=== PATIENT | male | born 1980 | race Caucasian/White ===

== ENCOUNTER 2021-07-31 12:36 | Emergency (ER) | payer OTHER, SELFPAY ==
--- NOTE | 2021-07-31 | ECG_ITS ---
Test Reason : CHEST PAIN Blood Pressure : / mmHG Vent. Rate : 072 BPM Atrial Rate : 072 BPM P-R Int : 154 ms QRS Dur : 094 ms QT Int : 390 ms P-R-T Axes : 040 -21 041 degrees QTc Int : 427 ms Normal sinus rhythm Normal ECG When compared with ECG of 01-JUN-2019 08:13, Vent. rate has increased BY 26 BPM Referred By: Generic ED Physician Electronically Signed By:CHERISE MAIER
[2021-07-31 12:53] VITALS: BP 132/70; PULSE 71; RESP 16; TEMP 36.6; O2SAT 98; BMI 33.9
== END 2021-07-31 15:07 | disposition left against medical advice (07) ==
PROVIDERS: Emergency Provider Emergency Medicine
DX: R07.9 Chest pain, unspecified (principal); R00.2 Palpitations
CPT/HCPCS: 93005; 99283

== ENCOUNTER 2022-04-10 10:33 | Emergency (ER) | payer OTHER, SELFPAY ==
[2022-04-10 10:42] VITALS: BP 128/74; PULSE 52; RESP 16; TEMP 36.6; O2SAT 96; BMI 31.1
[2022-04-10 11:51] LABS: COVID-19 Test Negative (Negative); IDNOW Serial# 16C4AD1C; Influenza A Negative (Negative); Influenza B2 Negative (Negative)
--- NOTE | 2022-04-10 12:13 | ED_ITS ---
HPI - URI/Sore Throat General Chief Complaint: General Medical Stated Complaint: sinus infection Time Seen by Provider: 04/10/22 12:08 Source: patient Mode of arrival: ambulatory Limitations: no limitations History of Present Illness MD elicited complaint: rhinorrhea, nasal congestion and sinus pain Onset (ago): week(s) (2) Consistency: constant and progressively worsening Severity: moderate Description of mucous: watery, yellow and green Able to tolerate fluids by mouth: Yes Exacerbating factors: leaning forward Relieving factors: nothing Context: other ( recently traveled from [place] here) Associated symptoms: denies other symptoms Treatments prior to arrival: other ( he is taking [id number] nasal sprays and medication no symptomatic relief) Related Data Previous Rx's Medication Instructions Recorded doxycycline hyclate 100 mg tablet 100 mg PO BID 10 Days #20 tab 04/10/22 loratadine-pseudoephedrine ER 10 1 tab PO DAILY #30 tab 04/10/22 mg-240 mg tablet,extended [id number] (Claritin-D 24 Hour) prednisone 20 mg tablet 20 mg PO DAILY 5 Days #5 tab 04/10/22 Allergies Allergy/AdvReac Type Severity Reaction Status Date / Time cefazolin [From ANCEF] Allergy Unknown UNKNOWN Unverified 07/26/20 16:34 cephalexin [From KEFLEX] Allergy Unknown UNKNOWN Unverified 07/26/20 16:34 Review of Systems Review of Systems: Constitutional : No Weight loss, No Fever, No Chills, No Night Sweats, No Fatigue, No Malaise ENT/Mouth : + nasal congestion/ rhinorrhea/sinus pain, No Hearing loss, No Ear Pain, No Hoarseness, No sore throat, No Swallowing Difficulty Eyes: No Eye Pain, No Swelling, No Redness, No Foreign Body, No Discharge, No Vision Changes Cardiovascular : No Chest Pain, No SOB, No Dyspnea on Exertion, No Orthopnea, No Edema, No Palpitations Respiratory : No Cough, No Sputum, No Wheezing, No Smoke Exposure, No Dyspnea Gastrointestinal : No Nausea, No Vomiting, No Diarrhea, No Constipation, No abdominal Pain, No Hematochezia, No Melena Genitourinary : no irregular bleeding, No Dysuria, No Urinary Frequency, No Hematuria, No Urinary Incontinence, No Urgency, No Flank Pain, No Urinary Flow Changes, No Hesitancy Musculoskeletal : No joint pain, No Myalgias, No Joint Swelling Skin : No Skin Lesions, No rash Neuro : No Weakness, No Numbness, No Paresthesias, No Loss of Consciousness, No Dizziness, No Headache Psych : No Anxiety/Panic, No Depression, No SI/HI/AH/VH, No Social Issues, Heme/Lymph: No Bruising, No Bleeding,No Lymphadenopathy Endocrine : No Polyuria, No Polydipsia, No Temperature Intolerance Yes all other systems are reviewed and are negative [facility] Past Medical History Attestation statement: The following information was validated with the patient. Social History Social History Advance Directives: No Advance Directives Information Provided: No Physical Exam Vital Signs: Vital Signs: Last Vital Signs Temp 97.8 F 04/10/22 10:42 Pulse 52 04/10/22 10:42 Resp 16 04/10/22 10:42 BP 128/74 04/10/22 10:42 Pulse Ox 96 04/10/22 10:42 BMI result Body Mass Index 31.1 vital signs have been reviewed as normal and appeared to be correct. Blood pressure normal. Heart rate normal. Respiration rate normal. Temperature normal. Oxygen saturation normal. Appearance: Alert. Oriented X3. No acute distress. Head: Normal external exam. Normocephalic. Atraumatic. Eyes: PERRLA. EOMI. Conjunctiva and sclera normal. Eyelids normal. ENT: EAC normal. TM's Normal. Pharynx normal. Uvula midline. Moist mucous membranes. No lesions/ulcerations or masses noted on the tongue. Normal voice. No trismus noted. No drooling noted. No muffled voice noted. patient with sinus pressure pain. Neck: Normal inspection. Neck supple. FROM. No adenopathy. Thyroid Normal. No tracheal deviation noted. No crepitus is noted. No meningeal signs. No neck mass noted. No signs of trauma noted. CVS: Normal heart rate and rhythm. Heart sound normal. Pulses normal throughout. No murmurs/rales/gallops. Respiratory: No respiratory distress. Painless inspiration. Breath sounds normal. No wheezes/rales/rhonchi noted. No accessory muscle usage noted or decreased air movement noted. Back: Full range of motion noted. Skin: Skin warm and dry. Normal skin color. Normal skin turgor. No rashes/lesions/lacerations noted. Extremities:Extremities exhibit normal range of motion and nontender. Neuro: Oriented X 3. No motor deficit. No sensory deficit. Reflexes normal. Normal steady gait. No focal neuro deficits noted. CN's II-XII intact bilaterally? Vascular: + radial pulses/+ 2 distal pedal pulses/+2 dorsalis pedis b/l. Normal cap refill. No cyanosis noted to upper extremity nails and lower extremity toes nails. Course Course Course Narrative: Patient most likely sinusitis/Allergic rhinitis. Patient negative for COVID and flu. No additional labs are indicated. Will DC home with antibiotics and symptomatic treatment instructions return if any new or worsening symptoms follow up with primary care provider. Patient understands agrees with this plan. MDM - URI/Sore Throat Medical Records Attestation: I reviewed the patient's medical records. Lab Data Attestation: I reviewed the patient's lab results. Labs: Lab Results 04/10/22 04/10/22 Range/Units 11:26 11:26 COVID-19 (ARI) Negative (Negative) COVID-19 Clin Com See Note Influenza Type A (GEN) Negative (Negative) Influenza Type B (GEN) Negative (Negative) Influenza A & B Note See Note Discharge Plan Discharge Clinical Impression: Sinusitis Patient Disposition: Home, Self-Care Instructions: Sinusitis (ED) Prescriptions: New doxycycline hyclate 100 mg tablet 100 mg PO BID 10 Days Qty: 20 0RF prednisone 20 mg tablet 20 mg PO DAILY 5 Days Qty: 5 0RF loratadine-pseudoephedrine [Claritin-D 24 Hour] 10-240 mg tablet extended release 24 hr 1 tab PO DAILY Qty: 30 0RF Referrals: Physician,None [Primary Care Provider] - 2 days ( your PCP) Stand Alone Forms: Work/School Release
== END 2022-04-10 12:39 | disposition home or self-care (01) ==
PROVIDERS: Emergency Provider Emergency Medicine
DX: J32.9 Chronic sinusitis, unspecified (principal); Z20.822 Contact with and (suspected) exposure to COVID-19
CPT/HCPCS: 87502; 87635; 99283

== ENCOUNTER 2022-12-30 13:13 | Emergency (ER) | payer OTHER, SELFPAY ==
[2022-12-30 13:44] VITALS: BP 137/85; PULSE 62; RESP 18; TEMP 36.8; O2SAT 98; BMI 36.6
--- NOTE | 2022-12-30 13:45 | ED.EYEPROB ---
HPI - Eye Problem General Chief complaint: Eye Problems <TAIWO Conner Last Filed: 12/30/22 13:48> Stated complaint: Infected pimple/Blurry vision R eye <TAIWO Conner Last Filed: 12/30/22 13:48> Time Seen by Provider: 12/30/22 14:18 <TAIWO Conner Last Filed: 12/30/22 13:48> History of Present Illness HPI Narrative: Patient complains of pain and swelling in the right side of the nose and redness and pain now around the right orbit It started with a small pimple on the inside up her right nostril which he popped with a Q-tip but now there is some swelling there and now the redness extends around his right eye, he has no pain with movement of the eye he has no pain in the eye itself no loss of vision no photophobia no discharge from eye no headache no confusion <TAIWO Davis - Last Filed: 01/10/23 21:26> Related Data Home medications: Previous Rx's Medication Instructions Recorded doxycycline hyclate 100 mg tablet 100 mg PO BID 10 days #20 tabs 04/10/22 loratadine-pseudoephedrine ER 10 1 tab PO DAILY #30 tabs 04/10/22 mg-240 mg tablet,extended [id number] (Claritin-D 24 Hour) amoxicillin 875 mg-potassium 1 tab PO BID 7 days #14 tabs 12/30/22 clavulanate 125 mg tablet doxycycline hyclate 100 mg capsule 100 mg PO BID 7 days #14 caps 12/30/22 ibuprofen 600 mg tablet 600 mg PO Q6H PRN pain #20 tabs 12/30/22 oxycodone 5 mg tablet 5 mg PO Q6H PRN pain #10 tabs 12/30/22 <TAIWO Conner Last Filed: 12/30/22 13:48> Allergies/adverse reactions: Allergies Allergy/AdvReac Type Severity Reaction Status Date / Time cefazolin [From ANCEF] Allergy Unknown UNKNOWN Unverified 04/16/22 14:50 cephalexin [From KEFLEX] Allergy Unknown UNKNOWN Unverified 04/16/22 14:50 <TAIWO Conner Last Filed: 12/30/22 13:48> [facility] Past Medical History Source: nursing notes reviewed <TAIWO Davis - Last Filed: 01/10/23 21:26> Social History Social History: Social History Advance Directives: No Advance Directives Information Provided: Yes <TAIWO Conner - Last Filed: 12/30/22 13:48> Physical Exam Vital Signs: Vital Signs: Last Vital Signs Temp 98.2 F 12/30/22 13:44 Pulse 62 12/30/22 13:44 Resp 18 12/30/22 13:44 BP 137/85 12/30/22 13:44 Pulse Ox 98 12/30/22 13:44 O2 Del Method 12/30/22 13:44 BMI result Body Mass Index 36.6 <TAIWO Conner - Last Filed: 12/30/22 13:48> Vital Signs: Last Vital Signs Temp 98.2 F 12/30/22 13:44 Pulse 62 12/30/22 13:44 Resp 18 12/30/22 13:44 BP 137/85 12/30/22 13:44 Pulse Ox 98 12/30/22 13:44 O2 Del Method 12/30/22 13:44 BMI result Body Mass Index 36.6 <TAIWO Davis - Last Filed: 01/10/23 21:26> General appearance no distress Facial exam the right nostril there is some mild swelling on the lateral aspect but no fluctuance no pustule There is some redness on the right infraorbital area as well as some redness of the right upper lid Pupils equal round reactive to light and extraocular motions are full and intact without any discomfort The pharynx is clear Neck is supple The chest is clear to auscultation bilateral Heart no murmur Extremities full range of motion x4 <TAIWO Davis - Last Filed: 01/10/23 21:26> Course Course Course Narrative: RME-- 42 yo M c/o infected pimpled to right nare which he picked at 3 days ago with some drainage, now with right facial swelling and right eye blurry vision times today. Denies pain with EOMs. Internal right nare pimple noted, difficult to assess in triage with mild external nare swelling and right periorbital swelling/erythema. No appreciable fluctuance/induration Labs ordered <TAIWO Conner - Last Filed: 12/30/22 13:48> RME-- 42 yo M c/o infected pimpled to right nare which he picked at 3 days ago with some drainage, now with right facial swelling and right eye blurry vision times today. Denies pain with EOMs. Internal right nare pimple noted, difficult to assess in triage with mild external nare swelling and right periorbital swelling/erythema. No appreciable fluctuance/induration Labs ordered Patient with a pimple which popped on the inside of his nose, now with some induration but no obvious fluctuant area in the nose and now there is erythema and tenderness in the right lower orbit and some tenderness and mild redness in the lateral and upper orbit as well, there is full painless extraocular motions which are intact Patient is treated for likely periorbital cellulitis with Augmentin and doxycycline, no fever and well-appearing patient is discharged <TAIWO Davis - Last Filed: 01/10/23 21:26> Medications Administered Discontinued Medications Generic Name Dose Route Start Last Admin Trade Name Freq PRN Reason Stop Dose Admin Amoxicillin/Clavulanate Potassium 875 mg 12/30/22 15:18 12/30/22 15:28 Amoxicillin/Potassium Clav 875 Mg Tablet PO 12/30/22 15:19 875 mg ONCE ONE Administration Doxycycline Monohydrate 100 mg 12/30/22 15:18 12/30/22 15:28 Doxycycline Monohydrate 100 Mg Capsule PO 12/30/22 15:19 100 mg ONCE ONE Administration <TAIWO Conner - Last Filed: 12/30/22 13:48> Medications Administered Discontinued Medications Generic Name Dose Route Start Last Admin Trade Name Freq PRN Reason Stop Dose Admin Amoxicillin/Clavulanate Potassium 875 mg 12/30/22 15:18 12/30/22 15:28 Amoxicillin/Potassium Clav 875 Mg Tablet PO 12/30/22 15:19 875 mg ONCE ONE Administration Doxycycline Monohydrate 100 mg 12/30/22 15:18 12/30/22 15:28 Doxycycline Monohydrate 100 Mg Capsule PO 12/30/22 15:19 100 mg ONCE ONE Administration <TAIWO Davis - Last Filed: 01/10/23 21:26> Medical Decision Making Lab Data Result Diagrams: 12/30/22 14:30 12/30/22 14:30 <TAIWO Conner - Last Filed: 12/30/22 13:48> Labs: Lab Results 12/30/22 12/30/22 12/30/22 Range/Units 14:30 14:30 14:30 WBC 8.1 (4.8-10.8) X10*3/uL RBC 4.61 (4.60-5.80) X10*6/uL Hgb 13.8 L (14.0-18.0) g/dl Hct 40.9 L (42.0-52.0) % MCV 88.7 (80.0-98.0) fL MCH 29.9 (27.0-33.0) pg MCHC 33.7 (31.0-36.0) g/dl RDW 13.2 (11.0-16.0) % Plt Count 239 (160-400) X10*3/uL MPV 9.6 (9.4-12.4) fL Immature Gran % (Auto) 0.2 (0.0-0.4) % Neut % (Auto) 66.8 (45-73) % Lymph % (Auto) 17.8 L (20-40) % [place] % (Auto) 6.8 (2-11) % Eos % (Auto) 7.5 H (0-4) % Baso % (Auto) 0.9 (0-2) % Lymph # (Auto) 1.4 (1.2-4.9) X10*3/uL [place] # (Auto) 0.6 (0.1-1.2) X10*3/uL Eos # (Auto) 0.6 H (0.0-0.4) X10*3/uL Baso # (Auto) 0.1 (0.0-0.2) X10*3/uL Abs Immat Gran (auto) 0.02 (0.00-0.03) X10*3/uL Absolute Neuts (auto) 5.4 (2.0-8.3) x10*3/uL Absolute Nucleated RBC 0.000 (0.0-0.012) X10*3/uL Nucleated RBC % (auto) 0.0 (0.0-0.2) /100WBC ESR 22 H (0-15) MM/HR Sodium 139 (135-145) mmol/L Potassium 4.4 (3.3-5.1) mmol/L Chloride 103 (96-108) mmol/L Carbon Dioxide 32 H (22-29) mmol/L Anion Gap 8 L (12-20) BUN 14 (9-16) mg/dL Creatinine 0.92 (0.5-1.4) mg/dL Estim Creat Clear Calc 142.8 Estimated GFR > 60 Random Glucose 79 (60-115) mg/dL Calcium 9.0 (8.4-10.2) mg/dL C-Reactive Protein 2.43 H (< or = 0.50) mg/dL <TAIWO Conner - Last Filed: 12/30/22 13:48> Lab Results 12/30/22 12/30/22 12/30/22 Range/Units 14:30 14:30 14:30 WBC 8.1 (4.8-10.8) X10*3/uL RBC 4.61 (4.60-5.80) X10*6/uL Hgb 13.8 L (14.0-18.0) g/dl Hct 40.9 L (42.0-52.0) % MCV 88.7 (80.0-98.0) fL MCH 29.9 (27.0-33.0) pg MCHC 33.7 (31.0-36.0) g/dl RDW 13.2 (11.0-16.0) % Plt Count 239 (160-400) X10*3/uL MPV 9.6 (9.4-12.4) fL Immature Gran % (Auto) 0.2 (0.0-0.4) % Neut % (Auto) 66.8 (45-73) % Lymph % (Auto) 17.8 L (20-40) % [place] % (Auto) 6.8 (2-11) % Eos % (Auto) 7.5 H (0-4) % Baso % (Auto) 0.9 (0-2) % Lymph # (Auto) 1.4 (1.2-4.9) X10*3/uL [place] # (Auto) 0.6 (0.1-1.2) X10*3/uL Eos # (Auto) 0.6 H (0.0-0.4) X10*3/uL Baso # (Auto) 0.1 (0.0-0.2) X10*3/uL Abs Immat Gran (auto) 0.02 (0.00-0.03) X10*3/uL Absolute Neuts (auto) 5.4 (2.0-8.3) x10*3/uL Absolute Nucleated RBC 0.000 (0.0-0.012) X10*3/uL Nucleated RBC % (auto) 0.0 (0.0-0.2) /100WBC ESR 22 H (0-15) MM/HR Sodium 139 (135-145) mmol/L Potassium 4.4 (3.3-5.1) mmol/L Chloride 103 (96-108) mmol/L Carbon Dioxide 32 H (22-29) mmol/L Anion Gap 8 L (12-20) BUN 14 (9-16) mg/dL Creatinine 0.92 (0.5-1.4) mg/dL Estim Creat Clear Calc 142.8 Estimated GFR > 60 Random Glucose 79 (60-115) mg/dL Calcium 9.0 (8.4-10.2) mg/dL C-Reactive Protein 2.43 H (< or = 0.50) mg/dL <TAIWO Davis - Last Filed: 01/10/23 21:26> Discharge Plan Discharge Clinical Impression: Periorbital cellulitis <TAIWO Conner - Last Filed: 12/30/22 13:48> Patient Disposition: Home, Self-Care <TAIWO Conner - Last Filed: 12/30/22 13:48> Additional Instructions: The small swelling inside the nose did not seem to have any pus or fluctuance, there was no white head on it so at this point I would not drain or cut anything in the nose The redness spreading around the right orbit is likely a spread of skin infection so we are treated with 2 antibiotics Augmentin and doxycycline Return to the ER in 3 days for recheck if not improved Return any time for spreading redness eye pain vision loss worse pain and swelling any concern of worsening infection or any worse condition or any concerns <TAIWO Conner - Last Filed: 12/30/22 13:48> Prescriptions: New doxycycline hyclate 100 mg capsule 100 mg PO BID 7 Days Qty: 14 0RF amoxicillin-pot clavulanate 875-125 mg tablet 1 tab PO BID 7 Days Qty: 14 0RF ibuprofen 600 mg tablet 600 mg PO Q6H PRN (Reason: pain) Qty: 20 0RF oxycodone 5 mg tablet 5 mg PO Q6H PRN (Reason: pain) Qty: 10 0RF Rx Instructions: Partial Fill upon patient request. No Action doxycycline hyclate 100 mg tablet 100 mg PO BID 10 Days Qty: 20 0RF loratadine-pseudoephedrine [Claritin-D 24 Hour] 10-240 mg tablet extended release 24 hr 1 tab PO DAILY Qty: 30 0RF <TAIWO Conner - Last Filed: 12/30/22 13:48> Stand Alone Forms: Work/School Release <TAIWO Conner - Last Filed: 12/30/22 13:48> Interventions: ED Discharge Assessment Last Done: 12/30/22 16:28 <TAIWO Conner - Last Filed: 12/30/22 13:48> Discharge Date/Time: 12/30/22 16:29 <TAIWO Conner - Last Filed: 12/30/22 13:48>
[2022-12-30 14:35] LABS: MANUAL DIFF FLAG NO
[2022-12-30 14:36] LABS: Basophils Absolute Auto 0.1 X10*3/uL (0.0-0.2); Basophils Percent Auto 0.9 % (0-2); Eosinophils Absolute Auto 0.6 X10*3/uL (0.0-0.4); Eosinophils Percent Auto 7.5 % (0-4); Hematocrit 40.9 % (42.0-52.0); Hemoglobin 13.8 g/dl (14.0-18.0); Imm Gran Abs Auto 0.02 X10*3/uL (0.00-0.03); Imm Gran Pct Auto 0.2 % (0.0-0.4); Lymphocytes Absolute Auto 1.4 X10*3/uL (1.2-4.9); Lymphocytes Percent Auto 17.8 % (20-40); Mean Corpuscular HGB Conc 33.7 g/dl (31.0-36.0); Mean Corpuscular Hemoglobin 29.9 pg (27.0-33.0); Mean Corpuscular Volume 88.7 fL (80.0-98.0); Mean Platelet Volume 9.6 fL (9.4-12.4); Monocytes Absolute Auto 0.6 X10*3/uL (0.1-1.2); Monocytes Percent Auto 6.8 % (2-11); Neutrophils Absolute Auto 5.4 x10*3/uL (2.0-8.3); Neutrophils Percent Auto 66.8 % (45-73); Platelet Count 239 X10*3/uL (160-400); Red Blood Count 4.61 X10*6/uL (4.60-5.80); Red Cell Distribution Width 13.2 % (11.0-16.0); White Blood Count 8.1 X10*3/uL (4.8-10.8)
[2022-12-30 14:54] LABS: Anion Gap 8 (12-20); Blood Urea Nitrogen 14 mg/dL (9-16); C Reactive Protein 2.43 mg/dL (< or = 0.50); Carbon Dioxide 32 mmol/L (22-29); Chloride 103 mmol/L (96-108); Creatinine Clr Calc Pharmacy 142.8; Estimated Glomerular Filt Rate > 60; Glucose Random 79 mg/dL (60-115); Potassium 4.4 mmol/L (3.3-5.1); Sodium 139 mmol/L (135-145)
[2022-12-30 15:17] LABS: Erythrocyte Sedimentation Rate 22 MM/HR (0-15)
[2022-12-30] MEDS: Amoxicillin/Potassium Clav 875 MG TABLET PO (15:28)
[2022-12-30] MEDS: Doxycycline Monohydrate 100 MG CAPSULE PO (15:28)
== END 2022-12-30 16:29 | disposition home or self-care (01) ==
PROVIDERS: Physician Assistant; Emergency Provider Emergency Medicine
DX: L03.213 Periorbital cellulitis (principal)
CPT/HCPCS: 36415; 80048; 85025; 85652; 86140; 99282; 99283

== ENCOUNTER 2023-01-01 07:32 | Emergency (ER) | payer OTHER, SELFPAY ==
--- NOTE | ~2023-01-01 | CT_ITS ---
EXAMINATION: CT MAXILLOFACIAL WITH CONTRAST CLINICAL INFORMATION: Facial abscess. Pain with eye movement. COMPARISON: CT head from 06/01/2019. TECHNIQUE: Multidetector helical imaging was performed in the axial plane without and following the administration of 85 mL of Omnipaque 350 intravenous contrast. Generation of coronal and sagittal reformatted images. This CT examination was performed using dose optimization techniques as appropriate, variously including the following: *Automated exposure control *Adjustment of mA and/or kV according to patient size (this includes techniques or standardized protocols for targeted exams where dose is matched to indication/reason for exam; i.e. extremities or head) *Use of iterative reconstruction technique DLP: 286 mGy-cm FINDINGS: FRONTAL SINUSES AND DRAINAGE PATHWAYS: Mild mucosal thickening of the frontal sinuses. The frontoethmoidal recesses are patent. MAXILLARY SINUSES AND DRAINAGE PATHWAYS: Moderate mucosal thickening of the right greater than left maxillary sinuses. Small volume layering fluid within the maxillary sinuses. The right greater than left maxillary ostia and infundibula are partially opacified. ETHMOID SINUSES: Moderate mucosal thickening of the ethmoid air cells. The ethmoid roofs appear symmetric and intact. SPHENOID SINUS AND DRAINAGE PATHWAYS: Mild mucosal thickening of the sphenoid sinus. The sphenoethmoidal recesses are patent. The carotid canals are normally covered by bone. NASAL PASSAGE: Moderate mucosal thickening of the nasal passages. The osseous nasal septum remains midline. ORBITS: Normal appearance of the osseous orbits. The lamina papyracea are intact. No significant retrobulbar edema. Normal appearance of the globes. Normal symmetric appearance of the extraocular musculature. No abnormalities of the intraconal or extraconal adipose tissue. Normal appearance of the optic nerve sheaths. Normal appearance of the lacrimal glands. No orbital fluid collections. No abnormalities of the orbital apices. TEMPOROMANDIBULAR JOINTS: The temporomandibular joints remain well aligned. Normal appearance of the temporomandibular joints. ADDITIONAL RELEVANT FINDINGS: Mild subcutaneous edema within the right periorbital and premaxillary soft tissues without discrete collection. No evidence of maxillofacial bone fractures. The zygomatic arches remain intact. No nasal bone fracture. No evidence of mandibular or maxillary fracture. Odontogenic enamel erosion of the maxillary right 2nd molar. The visualized mastoid air cells and middle ear cavities remain well aerated. Limited evaluation of the intracranial structures without significant abnormalities. The retromaxillary, pterygopalatine fossa, temporal fossa, and parapharyngeal adipose tissue is maintained. No demonstrated soft tissue abnormalities within the intrinsic tissues of the tongue. CT/CT facial bones w IV con IMPRESSION: 1. Mild subcutaneous edema within the right periorbital and premaxillary soft tissues. No discrete collection. No retrobulbar fluid collections. 2. Moderate pansinonasal mucosal disease, most notably involving the right greater than left maxillary sinuses. Small volume layering fluid within the maxillary sinuses suggestive of acute on chronic sinusitis.
[2023-01-01 07:52] VITALS: BP 137/77; PULSE 82; RESP 16; TEMP 36.3; O2SAT 96; BMI 38.0
--- NOTE | 2023-01-01 08:49 | ED_ITS ---
HPI - General Adult General Chief complaint: General Medical Stated complaint: nose infection Time Seen by Provider: 01/01/23 08:45 Source: patient Mode of arrival: ambulatory Limitations: no limitations History of Present Illness HPI narrative: 42 [id number] with no known medical history presents with c/o increasing pain/redness to right periorbital region and right nare increasing since yesterday. Was seen here two days prior and discharged home with periorbital cellulitis on doxycycline and augmentin. Pt reports generalized right eye pain/pressure with EOM, with greater increase in pain when looking down, and blurred vision in right eye. He also endorses purulent discharge, swelling, and inability to breath through the right nare, that has increased since yesterday as well as right sinus pain. He denies fever, chills, fatigue, and reports proper antibiotic use. Onset (ago): day(s) Location: face (right nare, right sinus), eyes (right) and right Radiation: non-radiation Quality: other (pressure) Pain Consistency: constant Relieving factors: none Exacerbating factors: none Associated symptoms: denies other symptoms Treatments prior to arrival: other (antibiotics) Related Data Previous Rx's Medication Instructions Recorded doxycycline hyclate 100 mg tablet 100 mg PO BID 10 days #20 tabs 04/10/22 loratadine-pseudoephedrine ER 10 1 tab PO DAILY #30 tabs 04/10/22 mg-240 mg tablet,extended [id number] (Claritin-D 24 Hour) amoxicillin 875 mg-potassium 1 tab PO BID 7 days #14 tabs 12/30/22 clavulanate 125 mg tablet doxycycline hyclate 100 mg capsule 100 mg PO BID 7 days #14 caps 12/30/22 ibuprofen 600 mg tablet 600 mg PO Q6H PRN pain #20 tabs 12/30/22 oxycodone 5 mg tablet 5 mg PO Q6H PRN pain #10 tabs 12/30/22 Allergies Allergy/AdvReac Type Severity Reaction Status Date / Time cefazolin [From ANCEF] Allergy Unknown UNKNOWN Unverified 04/16/22 14:50 cephalexin [From KEFLEX] Allergy Unknown UNKNOWN Unverified 04/16/22 14:50 Review of Systems Constitutional: Constitutional: Reports no additional constitutional complaints, Denies chills, Denies fever(s) and Denies night sweats Eyes: Eyes: Reports no additional eye complaints, Reports blurry vision (right eye), Denies exophthalmos, Denies change in vision, Denies diplopia, Denies eye discharge, Denies loss of vision and Denies eye pain Comments: redness under the right eye ENT: Reports Normal hearing present, Denies dental pain, Denies dizziness, Denies ear discharge, Reports facial pain, Denies mouth lesions, Denies mouth pain, Reports nasal congestion (right nare only), Reports nasal discharge (right nare), Reports nose pain, Reports sinus pain and Reports sinus pressure Cardiovascular: Cardiovascular: Reports no additional cardiovascular complaints, Denies chest pain, Denies lightheadedness, Denies Loss of Consciousness and Denies dyspnea Respiratory: Respiratory: Reports no additional respiratory complaints and Denies dyspnea Gastrointestinal: Gastrointestinal: Reports no additional gastrointestinal complaints, Denies abdominal pain, Denies melena, Denies hematochezia, Denies ch sofi in bowel habits and Denies change in stool character Genitourinary: Genitourinary: Reports no additional male genitourinary complaints, Denies hematuria, Denies oliguria, Denies difficulty urinating, Denies dysuria, Denies urinary frequency, Denies urinary hesitancy, Denies urinary incontinence and Denies urinary urgency Musculoskeletal: Musculoskeletal: Reports no additional musculoskeletal complaints, Denies numbness and Denies tingling Neurologic: Reports Normal hearing present, Denies dizziness, Denies loss of vision, Denies numbness and Denies tingling Psychiatric: Psychiatric: Reports no additional psychiatric complaints Endocrine: Endocrine: Reports no additional endocrine complaints Hematologic/Lymphatic: Hematologic/Lymphatic: Reports no additional hematologic/lymphatic complaints Allergic/Immunologic: Allergic/Immunologic: Reports no additional allergic/immunologic complaints [facility] Past Medical History Attestation statement: The following information was validated with the patient. Source: old records reviewed and nursing notes reviewed Social History Social History Advance Directives: No Advance Directives Information Provided: Yes Physical Exam ED Vital Signs: Vital Signs - 24 hr 01/01/23 12:15 Temperature 98.3 F Pulse Rate 60 Respiratory Rate 18 Blood Pressure 111/61 Pulse Oximetry 94 Oxygen Delivery Method Room Air BMI result Body Mass Index 38.0 Const General: cooperative, no acute distress, alert and awake Nutritional Appearance: well nourished Orientation/consciousness: patient oriented x3 Limitations: no limitations HENOH Head: Yes normocephalic and Yes atraumatic Ears: hearing grossly normal bilaterally, external ears normal and TM's normal bilaterally General nose exam: external nose not normal, nasal discharge present, Abnormal external nose present nasal erythema, nasal tenderness and nasal swelling (right nare, internal and external), Abnormal mucous membranes and turbinates present erythematous on the right and other, no nasal discharge noted and no epistaxis Face and sinus: Yes normal facial exam, No abrasion and No laceration Mouth: Normal oral and palatal mucosa present, no drooling and no muffled voice Teeth and gingiva: dentition normal Throat: Yes posterior oropharynx normal Eyes Alignment and Position: alignment normal and position normal Periorbital: periorbital findings abnormal right periorbital tenderness and periorbital erythema Eyelids: Yes eyelids normal Conjunctivae: conjunctivae normal Sclerae: sclerae normal Corneas: corneas normal Pupils: Equal, round and reactive pupils present EOM: EOM abnormal (pain with movement, increased when looking inferiorly) Neck Neck: Yes normal visual inspection, Yes full ROM and Yes no lymphadenopathy Chest Chest palpation & inspection: normal inspection of the chest Resp Effort & Inspection: normal respiratory effort and able to speak in complete sentences Auscultation: clear to auscultation bilaterally Cardio Palpation: normal PMI Rate: regular rate Rhythm: regular rhythm GI Inspection: Yes normal to inspection Palpation (GI): Soft to palpation, not firm, nontender and no guarding Auscultation: normal bowel sounds Skin General skin exam: erythema (periorbital region, right nare) and induration (right nare) Neuro General: patient oriented x3 and moves all extremities Cranial nerves: Yes Equal, round and reactive pupils present and Yes Normal hearing present Cognition (Neuro): normal cognition Motor exam (neuro): 5/5 motor strength present throughout Sensory Exam: Normal double simultaneous stimulation for sensation Coordination: [id number] test normal Extrem General: Yes normal to inspection, Yes full ROM and Yes capillary refill normal Psych Appearance: grossly normal Mental Status: mental status grossly normal Affect: normal affect Attitude: cooperative Thought process: Normal thought process present Thought content: Normal thought content present Insight: Good insight present (Psych) Medications Administered Discontinued Medications Generic Name Dose Route Start Last Admin Trade Name Freq PRN Reason Stop Dose Admin Piperacillin Sod/Tazobactam 50 mls @ 100 mls/hr 01/01/23 09:33 01/01/23 10:17 Sod 3.375 gm/ Sodium Chloride IV 01/01/23 10:02 Infused ONCE ONE Infusion Vancomycin HCl 2,000 mg in 520 mls @ 260 mls/hr 01/01/23 10:00 01/01/23 13:26 Vancomycin/Ns IV 01/01/23 11:59 Infused ONCE ONE Infusion Iohexol 85 ml 01/01/23 11:08 01/01/23 11:08 Iohexol 350 Mg/Ml 100 Ml Infus..Btl IV 01/01/23 11:09 85 ml ONCE ONE Administration Morphine Sulfate 4 mg 01/01/23 09:47 01/01/23 10:17 Morphine Sulfate 4 Mg/Ml Cartridge IVPUSH 01/01/23 09:48 4 mg ONCE ONE Administration Protocol Ondansetron HCl 4 mg 01/01/23 09:47 01/01/23 10:17 Ondansetron Hcl 4 Mg/2 Ml Vial IVPUSH 01/01/23 09:48 4 mg ONCE ONE Administration Medical Decision Making Medical Decision Making MDM Narrative: 42 [id number] with no known medical history presents with c/o increasing pain/redness to right periorbital region and right nare. Differential diagnosis includes periorbital cellulitis, orbital cellulitis, sinusitis, dacryocystitis, and localized abscess. Due to patient's self report of increasing redness and pain along with EOM movement, orbital cellulitis is more likely. Plan: -Labs, imaging, IV antibiotics. -Re-eval Patient's labs showed an ESR of 25 and an elevated CRP of 2.03. Patient's facial CT showed mild subcut edema within the right periorbital and premaxillary soft tissues with no discrete collection and moderate pansinonasal mucosal disease. After IV zosyn and vanco, patient's redness under his right eye and nasal abscess decreased significantly. Patient stated he felt significantly better. Given no discrete fluid collection, no signs of sepsis, and the patient's improvement of symptoms, the patient and I determined through shared decision making that discharge home and continuing his previous antibiotics would be the best course of action for the patient. Differential Diagnosis Differential Diagnoses: The differential diagnosis associated with the presentat ion includes periorbital cellulitis Admission/Observation Consideration of admission/observation: Escalation of care including admission/observation considered Admission was considered and discussed with the patient however, through shared decision making, we decided against admission as noted in the MDM portion of this chart. Lab Data [facility] Lab Attestation statement: I reviewed the patient's lab results. 01/01/23 09:34 01/01/23 09:35 Labs: Lab Results 01/01/23 01/01/23 01/01/23 Range/Units 09:34 09:34 09:34 WBC 8.8 (4.8-10.8) X10*3/uL RBC 4.65 (4.60-5.80) X10*6/uL Hgb 14.0 (14.0-18.0) g/dl Hct 41.5 L (42.0-52.0) % MCV 89.2 (80.0-98.0) fL MCH 30.1 (27.0-33.0) pg MCHC 33.7 (31.0-36.0) g/dl RDW 13.2 (11.0-16.0) % Plt Count 260 (160-400) X10*3/uL MPV 9.8 (9.4-12.4) fL Immature Gran % (Auto) 0.2 (0.0-0.4) % Neut % (Auto) 75.6 H (45-73) % Lymph % (Auto) 13.0 L (20-40) % Bradley % (Auto) 6.2 (2-11) % Eos % (Auto) 4.2 H (0-4) % Baso % (Auto) 0.8 (0-2) % Lymph # (Auto) 1.2 (1.2-4.9) X10*3/uL Bradley # (Auto) 0.6 (0.1-1.2) X10*3/uL Eos # (Auto) 0.4 (0.0-0.4) X10*3/uL Baso # (Auto) 0.1 (0.0-0.2) X10*3/uL Abs Immat Gran (auto) 0.02 (0.00-0.03) X10*3/uL Absolute Neuts (auto) 6.7 (2.0-8.3) x10*3/uL Absolute Nucleated RBC 0.000 (0.0-0.012) X10*3/uL Nucleated RBC % (auto) 0.0 (0.0-0.2) /100WBC ESR 25 H (0-15) MM/HR Sodium (135-145) mmol/L Potassium (3.3-5.1) mmol/L Chloride (96-108) mmol/L Carbon Dioxide (22-29) mmol/L Anion Gap (12-20) BUN (9-16) mg/dL Creatinine (0.5-1.4) mg/dL Estim Creat Clear Calc Estimated GFR Random Glucose (60-115) mg/dL Lactic Acid 0.9 (0.5-2.0) mmol/L Calcium (8.4-10.2) mg/dL Magnesium (1.6-2.6) mg/dL Total Bilirubin (0.0-1.0) mg/dL AST (5-37) U/L ALT (0-40) U/L Alkaline Phosphatase (39-117) U/L C-Reactive Protein (< or = 0.50) mg/dL Total Protein (6.5-8.0) g/dL Albumin (3.5-5.0) g/dL 01/01/23 Range/Units 09:35 WBC (4.8-10.8) X10*3/uL RBC (4.60-5.80) X10*6/uL Hgb (14.0-18.0) g/dl Hct (42.0-52.0) % MCV (80.0-98.0) fL MCH (27.0-33.0) pg MCHC (31.0-36.0) g/dl RDW (11.0-16.0) % Plt Count (160-400) X10*3/uL MPV (9.4-12.4) fL Immature Gran % (Auto) (0.0-0.4) % Neut % (Auto) (45-73) % Lymph % (Auto) (20-40) % Bradley % (Auto) (2-11) % Eos % (Auto) (0-4) % Baso % (Auto) (0-2) % Lymph # (Auto) (1.2-4.9) X10*3/uL Bradley # (Auto) (0.1-1.2) X10*3/uL Eos # (Auto) (0.0-0.4) X10*3/uL Baso # (Auto) (0.0-0.2) X10*3/uL Abs Immat Gran (auto) (0.00-0.03) X10*3/uL Absolute Neuts (auto) (2.0-8.3) x10*3/uL Absolute Nucleated RBC (0.0-0.012) X10*3/uL Nucleated RBC % (auto) (0.0-0.2) /100WBC ESR (0-15) MM/HR Sodium 140 (135-145) mmol/L Potassium 5.1 (3.3-5.1) mmol/L Chloride 106 (96-108) mmol/L Carbon Dioxide 27 (22-29) mmol/L Anion Gap 12 (12-20) BUN 16 (9-16) mg/dL Creatinine 0.98 (0.5-1.4) mg/dL Estim Creat Clear Calc 136.6 Estimated GFR > 60 Random Glucose 95 (60-115) mg/dL Lactic Acid (0.5-2.0) mmol/L Calcium 9.3 (8.4-10.2) mg/dL Magnesium 2.1 (1.6-2.6) mg/dL Total Bilirubin 0.3 (0.0-1.0) mg/dL AST 18 (5-37) U/L ALT 26 (0-40) U/L Alkaline Phosphatase 76 (39-117) U/L C-Reactive Protein 2.03 H (< or = 0.50) mg/dL Total Protein 7.0 (6.5-8.0) g/dL Albumin 3.9 (3.5-5.0) g/dL Radiology Impression Radiologist Impression: My interpretation is in agreement with the radiologist's impression of this imaging study. - EXAMINATION: CT MAXILLOFACIAL WITH CONTRAST CLINICAL INFORMATION: Facial abscess. Pain with eye movement. COMPARISON: CT head from 06/01/2019. TECHNIQUE: Multidetector helical imaging was performed in the axial plane without and following the administration of 85 mL of Omnipaque 350 intravenous contrast. Generation of coronal and sagittal reformatted images. This CT examination was performed using dose optimization techniques as appropriate, variously including the following: *Automated exposure control *Adjustment of mA and/or kV according to patient size (this includes techniques or standardized protocols for targeted exams where dose is matched to indication/reason for exam; i.e. extremities or head) *Use of iterative reconstruction technique DLP: 286 mGy-cm FINDINGS: FRONTAL SINUSES AND DRAINAGE PATHWAYS: Mild mucosal thickening of the frontal sinuses. The frontoethmoidal recesses are patent. MAXILLARY SINUSES AND DRAINAGE PATHWAYS: Moderate mucosal thickening of the right greater than left maxillary sinuses. Small volume layering fluid within the maxillary sinuses. The right greater than left maxillary ostia and infundibula are partially opacified. ETHMOID SINUSES: Moderate mucosal thickening of the ethmoid air cells. The ethmoid roofs appear symmetric and intact. SPHENOID SINUS AND DRAINAGE PATHWAYS: Mild mucosal thickening of the sphenoid sinus. The sphenoethmoidal recesses are patent. The carotid canals are normally covered by bone. NASAL PASSAGE: Moderate mucosal thickening of the nasal passages. The osseous nasal septum remains midline. ORBITS: Normal appearance of the osseous orbits. The lamina papyracea are intact. No significant retrobulbar edema. Normal appearance of the globes. Normal symmetric appearance of the extraocular musculature. No abnormalities of the intraconal or extraconal adipose tissue. Normal appearance of the optic nerve sheaths. Normal appearance of the lacrimal glands. No orbital fluid collections. No abnormalities of the orbital apices. TEMPOROMANDIBULAR JOINTS: The temporomandibular joints remain well aligned. Normal appearance of the temporomandibular joints. ADDITIONAL RELEVANT FINDINGS: Mild subcutaneous edema within the right periorbital and premaxillary soft tissues without discrete collection. No evidence of maxillofacial bone fractures. The zygomatic arches remain intact. No nasal bone fracture. No evidence of mandibular or maxillary fracture. Odontogenic enamel erosion of the maxillary right 2nd molar. The visualized mastoid air cells and middle ear cavities remain well aerated. Limited evaluation of the intracranial structures without significant abnormalities. The retromaxillary, pterygopalatine fossa, temporal fossa, and parapharyngeal adipose tissue is maintained. No demonstrated soft tissue abnormalities within the intrinsic tissues of the tongue. CT/CT facial bones w IV con IMPRESSION: 1.? Mild subcutaneous edema within the right periorbital and premaxillary soft tissues. No discrete collection. No retrobulbar fluid collections. 2.? Moderate pansinonasal mucosal disease, most notably involving the right greater than left maxillary sinuses. Small volume layering fluid within the maxillary sinuses suggestive of acute on chronic sinusitis. Dictated By: Óscar Silva DO Signed By: Electronically signed by Óscar Silva DO 01/01/23 8011 Critical Care Time Critical Care Time Critical Care Time: Yes Total Critical Care Time: 30 Attestation: I spent 30 minutes of Critical Care Time with this patient. This does not include time spent on separately reported billable procedures. Discharge Plan Discharge Clinical Impression: Periorbital cellulitis Patient Disposition: Home, Self-Care Instructions: Periorbital Cellulitis in Adults (ED) Additional Instructions: Continue taking your antibiotics as prescribed. Follow up with your primary care provider. Return to the emergency department immediately if your symptoms worsen or if you develop any dizziness, shortness of breath, difficulty breathing, chest pain, blurry vision, loss of vision, nausea, vomiting, abdominal pain, fever, chills, back pain, or any other complaints. Prescriptions: No Action doxycycline hyclate 100 mg tablet 100 mg PO BID 10 Days Qty: 20 0RF loratadine-pseudoephedrine [Claritin-D 24 Hour] 10-240 mg tablet extended release 24 hr 1 tab PO DAILY Qty: 30 0RF doxycycline hyclate 100 mg capsule 100 mg PO BID 7 Days Qty: 14 0RF amoxicillin-pot clavulanate 875-125 mg tablet 1 tab PO BID 7 Days Qty: 14 0RF ibuprofen 600 mg tablet 600 mg PO Q6H PRN (Reason: pain) Qty: 20 0RF oxycodone 5 mg tablet 5 mg PO Q6H PRN (Reason: pain) Qty: 10 0RF Rx Instructions: Partial Fill upon patient request. Referrals: [facility] [Provider Group] (Call to establish and follow up with a primary care provider. If you already have a primary care provider, please follow up with them.) [facility] Primary Care, [place] [Provider Group] (Call to establish and follow up with a primary care provider. If you already have a primary care provider, please follow up with them.) [facility] Primary Care,Mikala [Provider Group] (Call to establish and follow up with a primary care provider. If you already have a primary care provider, please follow up with them.) Tadeo Trujillo [Physician] - (Call to establish and follow up with an ENT specialist.) Stand Alone Forms: Work/School Release Interventions: ED Discharge Assessment Last Done: 01/01/23 15:02 Discharge Date/Time: 01/01/23 15:03 Print Language: B[place]
[2023-01-01 09:39] LABS: MANUAL DIFF FLAG NO
[2023-01-01 09:42] LABS: Basophils Absolute Auto 0.1 X10*3/uL (0.0-0.2); Basophils Percent Auto 0.8 % (0-2); Eosinophils Absolute Auto 0.4 X10*3/uL (0.0-0.4); Eosinophils Percent Auto 4.2 % (0-4); Hematocrit 41.5 % (42.0-52.0); Imm Gran Abs Auto 0.02 X10*3/uL (0.00-0.03); Imm Gran Pct Auto 0.2 % (0.0-0.4); Lymphocytes Absolute Auto 1.2 X10*3/uL (1.2-4.9); Mean Corpuscular HGB Conc 33.7 g/dl (31.0-36.0); Mean Corpuscular Hemoglobin 30.1 pg (27.0-33.0); Mean Corpuscular Volume 89.2 fL (80.0-98.0); Mean Platelet Volume 9.8 fL (9.4-12.4); Monocytes Absolute Auto 0.6 X10*3/uL (0.1-1.2); Monocytes Percent Auto 6.2 % (2-11); Neutrophils Absolute Auto 6.7 x10*3/uL (2.0-8.3); Neutrophils Percent Auto 75.6 % (45-73); Platelet Count 260 X10*3/uL (160-400); Red Blood Count 4.65 X10*6/uL (4.60-5.80); Red Cell Distribution Width 13.2 % (11.0-16.0); White Blood Count 8.8 X10*3/uL (4.8-10.8)
[2023-01-01] MEDS: Piperacillin Sodium/Tazobactam 3.375 GM in 0.9 % Sodium Chloride 50 ML IV (09:44)
[2023-01-01 09:52] LABS: Lactic Acid 0.9 mmol/L (0.5-2.0)
[2023-01-01 10:17] VITALS: RESP 16
[2023-01-01 10:17] LABS: Alanine Aminotransferase 26 U/L (0-40); Albumin Level 3.9 g/dL (3.5-5.0); Alkaline Phosphatase 76 U/L (39-117); Anion Gap 12 (12-20); Aspartate Amino Transferase 18 U/L (5-37); Bilirubin Total 0.3 mg/dL (0.0-1.0); Blood Urea Nitrogen 16 mg/dL (9-16); C Reactive Protein 2.03 mg/dL (< or = 0.50); Calcium 9.3 mg/dL (8.4-10.2); Carbon Dioxide 27 mmol/L (22-29); Chloride 106 mmol/L (96-108); Creatinine Clr Calc Pharmacy 136.6; Estimated Glomerular Filt Rate > 60; Glucose Random 95 mg/dL (60-115); Magnesium 2.1 mg/dL (1.6-2.6); Potassium 5.1 mmol/L (3.3-5.1); Sodium 140 mmol/L (135-145)
[2023-01-01] MEDS: Morphine Sulfate 4 MG/ML CARTRIDGE IVPUSH (10:17)
[2023-01-01] MEDS: ondansetron HCL 4 MG/2 ML VIAL IVPUSH (10:17)
[2023-01-01 10:29] LABS: Erythrocyte Sedimentation Rate 25 MM/HR (0-15)
[2023-01-01] MEDS: iohexoL 350 MG/ML 100 ML INFUS..BTL 85 ML IV (11:08)
[2023-01-01 12:15] VITALS: BP 111/61; PULSE 60; RESP 18; TEMP 36.8; O2SAT 94
== END 2023-01-01 15:03 | disposition home or self-care (01) ==
PROVIDERS: Physician Assistant Medical; Emergency Provider Emergency Medicine
DX: L03.213 Periorbital cellulitis (principal)
CPT/HCPCS: 36415; 70487; 80053; 83605; 83735; 85025; 85652; 86140; 87040; 96365; 96366; 96367; 96375; 99284; J2270; J2405; J2543; J3370; Q9967

== ENCOUNTER 2023-10-24 09:26 | Emergency (ER) | payer OTHER, SELFPAY ==
--- NOTE | ~2023-10-24 | US_ITS ---
EXAMINATION: US VENOUS ULTRASOUND WITH DOPPLER LOWER EXTREMITY, BILATERAL CLINICAL INFORMATION: Bilateral calf pain and swelling. COMPARISON: None available. TECHNIQUE: Ultrasound of the deep veins is performed from the hip to the calf with compression sonography and color and pulse Doppler assessment. Spectral analysis with color-flow imaging is performed. FINDINGS: RIGHT: There is normal venous compression and respiratory variation and augmented flow. The visualized common femoral vein, superficial femoral vein, profunda femoral vein, popliteal vein, and the trifurcation region shows no evidence of deep venous thrombosis. There is no significant popliteal fossa cyst.. There are multiple right lymph nodes the largest lymph node measures 2.9 cm. LEFT: There is normal venous compression and respiratory variation and augmented flow. The visualized common femoral vein, superficial femoral vein, profunda femoral vein, popliteal vein, and the trifurcation region shows no evidence of deep venous thrombosis. There is no significant popliteal fossa cyst. There are prominent inguinal lymph nodes. The largest lymph node measures 3.1 cm If the patient's symptoms persist, followup ultrasound in 5 days 7 days might be of value to exclude proximal propagation from a non-visualized calf vein. US/US venous duplex LE BI IMPRESSION: No DVT demonstrated in the bilateral lower extremity. Bilateral groin lymph nodes noted.
--- NOTE | ~2023-10-24 | CT_ITS ---
EXAMINATION: CT ANGIOGRAM OF THE CHEST WITH AND WITHOUT CONTRAST (CT PULMONARY ANGIOGRAM FOR PE) CLINICAL INFORMATION: Reason for Exam chest pain, SOB COMPARISON: Chest x-ray and venous Doppler of 10/24/2023 TECHNIQUE: Prior to contrast administration, noncontrast localization images were obtained. Subsequently, multidetector volumetric imaging was performed from the thoracic inlet to below the diaphragms following the administration of 80 mL Omnipaque 350 intravenous contrast. No contrast reaction reported Sagittal, coronal, and MIP oblique sagittal reformatted images were obtained on the CT workstation, uploaded to PACS, and reviewed. This CT examination was performed using dose optimization techniques as appropriate, variously including the following: *Automated exposure control *Adjustment of mA and/or kV according to patient size (this includes techniques or standardized protocols for targeted exams where dose is matched to indication/reason for exam; i.e. extremities or head) *Use of iterative reconstruction technique Total exam dose-length product 530 mGy-cm FINDINGS: QUALITY OF STUDY/CONTRAST BOLUS: Examination is technically limited both by respiratory motion and suboptimal bolus as the contrast is predominantly in the left ventricle and aorta rather than the pulmonary circulation. PULMONARY ARTERIES: No central pulmonary embolus is detected in the main or proximal left or right pulmonary arteries. The peripheral pulmonary arteries are not well assessed secondary to suboptimal bolus and respiratory motion. THORACIC AORTA: No aneurysm. LUNG: No focal consolidation, nodules or masses. PLEURA: No pleural effusion or pneumothorax. MEDIASTINUM: Normal heart size. No pericardial effusion. No hilar or mediastinal lymphadenopathy. No evidence of septal bowing or right heart strain. CORONARY ARTERY CALCIFICATION: None visualized on this study. CHEST WALL/AXILLA: No axillary or internal mammary lymphadenopathy. Bilateral gynecomastia is present. OSSEOUS STRUCTURES: No acute or suspicious osseous abnormality. UPPER ABDOMEN: The liver is low in attenuation consistent with steatosis. No reflux of contrast into the hepatic veins to suggest elevated right heart pressures. CT/CT angio chest PE protocol IMPRESSION: 1. Technically limited study by respiratory motion and suboptimal bolus. No central pulmonary embolus is detected. 2. Incidental hepatic steatosis and bilateral gynecomastia.
--- NOTE | ~2023-10-24 | XR_ITS ---
EXAMINATION: XR CHEST CLINICAL INFORMATION: SOB COMPARISON: None available. TECHNIQUE: Frontal view of the chest was obtained. FINDINGS: No significant abnormality is noted involving the heart, lungs, mediastinum, bony thorax or soft tissues. XR/XR chest 1V IMPRESSION: Unremarkable chest examination.
[2023-10-24 09:29] VITALS: BP 130/71; PULSE 74; RESP 20; TEMP 36.7; O2SAT 94; BMI 53.3
[2023-10-24 10:26] LABS: MANUAL DIFF FLAG NO
[2023-10-24 10:27] LABS: Basophils Absolute Auto 0.1 X10*3/uL (0.0-0.2); Basophils Percent Auto 0.6 % (0-2); Eosinophils Absolute Auto 0.2 X10*3/uL (0.0-0.4); Eosinophils Percent Auto 2.9 % (0-4); Hematocrit 34.5 % (42.0-52.0); Hemoglobin 11.3 g/dl (14.0-18.0); Imm Gran Abs Auto 0.02 X10*3/uL (0.00-0.03); Imm Gran Pct Auto 0.3 % (0.0-0.4); Lymphocytes Percent Auto 12.9 % (20-40); Mean Corpuscular HGB Conc 32.8 g/dl (31.0-36.0); Mean Corpuscular Hemoglobin 29.7 pg (27.0-33.0); Mean Corpuscular Volume 90.8 fL (80.0-98.0); Mean Platelet Volume 9.8 fL (9.4-12.4); Monocytes Absolute Auto 0.5 X10*3/uL (0.1-1.2); Monocytes Percent Auto 6.1 % (2-11); Neutrophils Percent Auto 77.2 % (45-73); Platelet Count 212 X10*3/uL (160-400); Red Cell Distribution Width 14.1 % (11.0-16.0); White Blood Count 7.8 X10*3/uL (4.8-10.8)
[2023-10-24 10:41] LABS: Anion Gap 13 (12-20); Blood Urea Nitrogen 13 mg/dL (9-16); Carbon Dioxide 30 mmol/L (22-29); Chloride 105 mmol/L (96-108); Creatinine Clr Calc Pharmacy 180.3; Estimated Glomerular Filt Rate > 60; Glucose Random 136 mg/dL (60-115); Potassium 4.6 mmol/L (3.3-5.1); Sodium 143 mmol/L (135-145)
[2023-10-24 10:47] LABS: B Type Natriuretic Peptide 141 pg/mL (<100)
[2023-10-24 11:23] VITALS: BP 114/50; PULSE 65; RESP 20; TEMP 36.8; O2SAT 94
[2023-10-24 11:45] LABS: Appearance Urine Clear; Color Urine Yellow; Glucose Urine UA Negative (Negative); Leukocyte Esterase Urine Negative (Negative); Nitrite Urine Negative (Negative); PH 7.5 (5.0-9.0); Specific Gravity - Urine 1.025 (1.005-1.025); Urine Blood Negative (Negative); Urine Ketones Trace mg/dL (Negative); Urine Protein Negative (Neg-Trace)
--- NOTE | 2023-10-24 12:04 | ED.GENADULT ---
HPI - General Adult General Chief complaint: General Medical Stated complaint: leg swelling Time Seen by Provider: 10/24/23 10:38 Source: patient and RN notes reviewed Mode of arrival: ambulatory Limitations: no limitations History of Present Illness HPI narrative: This is a 43-year-old male, with a history of substance abuse (last use 100 days ago, never IVDA) on methadone, presenting to the emergency department with complaints of bilateral leg swelling, chest pain, and shortness of breath x 3 days. Patient reports that he has had intermittent left-sided chest pain, which develops intermittently, and worsens with palpation. He also endorses worsening shortness of breath, especially upon ambulation. Denies any recent travel, surgeries, hospitalizations. No cancer history. He does smoke cigarettes. Denies alcohol use. No other complaints or concerns at this time. MD complaint: Lower extremity swelling, chest pain, shortness of breath Location: chest Radiation: non-radiation Severity: moderate Quality: aching Pain Consistency: constant Relieving factors: none Exacerbating factors: none Associated symptoms: denies other symptoms Treatments prior to arrival: none Related Data Previous Rx's Medication Instructions Recorded doxycycline hyclate 100 mg tablet 100 mg PO BID 10 days #20 tabs 04/10/22 loratadine-pseudoephedrine ER 10 1 tab PO DAILY #30 tabs 04/10/22 mg-240 mg tablet,extended [id number] (Claritin-D 24 Hour) amoxicillin 875 mg-potassium 1 tab PO BID 7 days #14 tabs 12/30/22 clavulanate 125 mg tablet doxycycline hyclate 100 mg capsule 100 mg PO BID 7 days #14 caps 12/30/22 ibuprofen 600 mg tablet 600 mg PO Q6H PRN pain #20 tabs 12/30/22 oxycodone 5 mg tablet 5 mg PO Q6H PRN pain #10 tabs 12/30/22 furosemide 20 mg tablet (Lasix) 20 mg PO DAILY #3 tabs 10/24/23 Allergies Allergy/AdvReac Type Severity Reaction Status Date / Time cefazolin [From ANCEF] Allergy Unknown UNKNOWN Verified 10/24/23 09:29 cephalexin [From KEFLEX] Allergy Unknown UNKNOWN Verified 10/24/23 09:29 Review of Systems Review of Systems: Yes all other systems are reviewed and are negative Constitutional: Constitutional: Reports as per HPI [facility] Social History Social History Advance Directives: No Advance Directives Information Provided: No Physical Exam ED Vital Signs: Vital Signs - 24 hr 10/24/23 09:29 10/24/23 11:23 10/24/23 12:32 Temperature 98.0 F 98.3 F 98.1 F Pulse Rate 74 65 69 Respiratory Rate 20 20 20 Blood Pressure 130/71 114/50 L 125/70 Pulse Oximetry 94 94 93 Oxygen Delivery Method Room Air Room Air Room Air BMI result Body Mass Index 53.3 Const General: cooperative, comfortable and no acute distress Orientation/consciousness: patient oriented x3 Limitations: no limitations HENMT Head: Yes normal to inspection, Yes normocephalic and Yes atraumatic Ears: hearing grossly normal bilaterally General nose exam: Normal external nose present Face and sinus: Yes normal facial exam Mouth: Normal oral and palatal mucosa present, oropharynx normal and moist mucous membranes Throat: Yes posterior oropharynx normal Eyes General: appearance normal, both eyes and all related structures Eyelids: Yes eyelids normal Conjunctivae: conjunctivae normal Sclerae: sclerae normal Pupils: Equal, round and reactive pupils present EOM: EOMs intact bilaterally Neck Neck: Yes normal visual inspection, Yes full ROM and Yes no lymphadenopathy Lymphatic: no lymphadenopathy noted Chest Chest palpation & inspection: normal inspection of the chest and normal palpation of entire chest wall Resp Effort & Inspection: normal respiratory effort and able to speak in complete sentences Auscultation: clear to auscultation bilaterally, no crackles, no rales, no rhonchi and no wheezes Cardio Rate: regular rate Rhythm: regular rhythm Heart sounds: S1 normal heart sound present and S2 normal heart sound present GI Inspection: Yes normal to inspection Skin General skin exam: no rashes or lesions noted Trauma: no lacerations or abrasions Wounds: no wounds Neuro General: patient oriented x3 and moves all extremities Cranial nerves: Yes Equal, round and reactive pupils present Extrem Other: Bilateral lower extremities with 1+ pitting edema, 2+ DP pulses bilaterally. Extremities are well perfused. Tenderness palpation to bilateral calves. General: Yes normal to inspection Right upper extremity: normal to inspection Left upper extremity: normal to inspection Right lower extremity: normal to inspection Left lower extremity: normal to inspection Course Reevaluation(s) Reevaluation #1: Ultrasound negative chest x-ray negative, patient does have a slight elevation and BNP at 141. glucose 136, troponin negative. Given patient's obesity and shortness of breath and chest pain, will obtain CTA for rule out pulmonary embolism given patient is not compliant with primary care. Time: 14:44 Reevaluation #2: CT chest negative, BNP 141. Lower extremity swelling unclear etiology. Today's workup reassuring, however given symptoms and swelling of unknown etiology I recomended hospital admission for workup, he declines. [email or web address] give cardiology referral and patient medicated with Lasix 40 mg p.o. in department. Will discharge on Lasix 20 mg for the next 3 days. Given return precautions. Patient understands and agrees with plan. Time: 16:44 Medications Administered Discontinued Medications Generic Name Dose Route Start Last Admin Trade Name Freq PRN Reason Stop Dose Admin Furosemide 40 mg 10/24/23 16:45 10/24/23 16:50 Furosemide 40 Mg Tablet PO 10/24/23 16:46 40 mg ONCE ONE Administration Protocol Iohexol 65 ml 10/24/23 15:50 10/24/23 15:51 Iohexol 350 Mg/Ml 100 Ml Infus..Btl IV 10/24/23 15:51 65 ml ONCE ONE Administration Nicotine Polacrilex 2 mg 10/24/23 14:44 10/24/23 16:51 Nicotine Polacrilex 2 Mg Gum BUCCAL 10/24/23 14:45 Not Given ONCE ONE Medical Decision Making Medical Decision Making [facility] Narrative: This is a 43-year-old male presenting to the emergency department for evaluation of bilateral leg swelling, shortness of breath and chest pain x3 days. On arrival, vital signs within normal limits. Patient does have tenderness to palpation along bilateral calf is with 1+ pitting edema noted. Lungs are clear to auscultation bilaterally, heart regular rate. Differential diagnoses include nephrotic syndrome verses nephritic syndrome verses CHF versus dependent edema, ACS, DVT, PE. Plan: Labs, EKG, chest x-ray, ultrasound lower extremities Differential Diagnosis Differential Diagnoses: The differential diagnosis associated with the presentation includes See above Admission/Observation Consideration of admission/observation: Escalation of care including admission/observation considered Escalation of care including admission observation was considered given chest pain and shortness of breath Lab Data [facility] Lab Attestation statement: I reviewed the patient's lab results. No leukocytosis, patient has mild microcytic anemia with an H&H of 11.3, hematocrit 34.5, troponin 3.4 10/24/23 10:21 10/24/23 10:21 Labs: Lab Results 10/24/23 10/24/23 10/24/23 Range/Units 10:21 11:27 12:35 WBC 7.8 (4.8-10.8) X10*3/uL RBC 3.80 L (4.60-5.80) X10*6/uL Hgb 11.3 L (14.0-18.0) g/dl Hct 34.5 L (42.0-52.0) % MCV 90.8 (80.0-98.0) fL MCH 29.7 (27.0-33.0) pg MCHC 32.8 (31.0-36.0) g/dl RDW 14.1 (11.0-16.0) % Plt Count 212 (160-400) X10*3/uL MPV 9.8 (9.4-12.4) fL Immature Gran % (Auto) 0.3 (0.0-0.4) % Neut % (Auto) 77.2 H (45-73) % Lymph % (Auto) 12.9 L (20-40) % Caroline % (Auto) 6.1 (2-11) % Eos % (Auto) 2.9 (0-4) % Baso % (Auto) 0.6 (0-2) % Lymph # (Auto) 1.0 L (1.2-4.9) X10*3/uL Caroline # (Auto) 0.5 (0.1-1.2) X10*3/uL Eos # (Auto) 0.2 (0.0-0.4) X10*3/uL Baso # (Auto) 0.1 (0.0-0.2) X10*3/uL Abs Immat Gran (auto) 0.02 (0.00-0.03) X10*3/uL Absolute Neuts (auto) 6.0 (2.0-8.3) x10*3/uL Absolute Nucleated RBC 0.000 (0.0-0.012) X10*3/uL Nucleated RBC % (auto) 0.0 (0.0-0.2) /100WBC Sodium 143 (135-145) mmol/L Potassium 4.6 (3.3-5.1) mmol/L Chloride 105 (96-108) mmol/L Carbon Dioxide 30 H (22-29) mmol/L Anion Gap 13 (12-20) BUN 13 (9-16) mg/dL Creatinine 0.89 (0.5-1.4) mg/dL Estim Creat Clear Calc 180.3 Estimated GFR > 60 Random Glucose 136 H (60-115) mg/dL Calcium 9.0 (8.4-10.2) mg/dL Troponin I High Sens 3.4 (<3.5-35.0) ng/L B-Natriuretic Peptide 141 H (<100) pg/mL Albumin 3.7 (3.5-5.0) g/dL Urine Color Yellow Urine Appearance Clear Urine pH 7.5 (5.0-9.0) Ur Specific [place] 1.025 (1.005-1.025) Urine Protein Negative (Neg-Trace) mg/dL Urine Glucose (UA) Negative (Negative) mg/dL Urine Ketones Trace (Negative) mg/dL Urine Blood Negative (Negative) Urine Nitrite Negative (Negative) Ur Leukocyte Esterase Negative (Negative) Influenza Type A (PCR) NEGATIVE (Negative) Influenza Type B (PCR) NEGATIVE (Negative) RSV RNA Qual (PCR) NEGATIVE (Negative) SARS-CoV-2 RNA (RT-PCR) NEGATIVE (Negative) Independent Interpretation I performed an independent interpretation of an: EKG Interpretation: EKG normal sinus rhythm at a ventricular rate of 74 beats per minute, [place] interval 186, QTC 466. No ST elevation or depression. Radiology Impression Discussion of test interpretation with radiology: I have reviewed the radiologist's reading. Radiologist Impression: EXAMINATION: US VENOUS ULTRASOUND WITH DOPPLER LOWER EXTREMITY, BILATERAL CLINICAL INFORMATION: Bilateral calf pain and swelling. COMPARISON: None available. TECHNIQUE: Ultrasound of the deep veins is performed from the hip to the calf with compression sonography and color and pulse Doppler assessment. Spectral analysis with color-flow imaging is performed. FINDINGS: RIGHT: There is normal venous compression and respiratory variation and augmented flow. The visualized common femoral vein, superficial femoral vein, profunda femoral vein, popliteal vein, and the trifurcation region shows no evidence of deep venous thrombosis. There is no significant popliteal fossa cyst.. There are multiple right lymph nodes the largest lymph node measures 2.9 cm. LEFT: There is normal venous compression and respiratory variation and augmented flow. The visualized common femoral vein, superficial femoral vein, profunda femoral vein, popliteal vein, and the trifurcation region shows no evidence of deep venous thrombosis. There is no significant popliteal fossa cyst. There are prominent inguinal lymph nodes. The largest lymph node measures 3.1 cm If the patient's symptoms persist, followup ultrasound in 5 days 7 days might be of value to exclude proximal propagation from a non-visualized calf vein. US/US venous duplex LE BI IMPRESSION: No DVT demonstrated in the bilateral lower extremity. Bilateral groin lymph nodes noted. Dictated By: Kenny Bob MD EXAMINATION: XR CHEST CLINICAL INFORMATION: SOB COMPARISON: None available. TECHNIQUE: Frontal view of the chest was obtained. FINDINGS: No significant abnormality is noted involving the heart, lungs, mediastinum, bony thorax or soft tissues. XR/XR chest 1V IMPRESSION: Unremarkable chest examination. Dictated By: Kenny Bob MD Critical Care Time Critical Care Time Critical Care Time: Yes Total Critical Care Time: 40 Attestation: I have personally provided critical care time exclusive of time spent on separately billable procedures. Time includes review of lab data, radiology results, discussion with consultants, and monitoring for potential decompensation. Intervention performed as documented. Discharge Plan Discharge Clinical Impression: Edema, peripheral Patient Disposition: Home, Self-Care Instructions: Leg Edema (ED) Additional Instructions: It is unclear what is causing you to have lower extremity swelling however it is critical that you follow-up with Cardiology for further testing and evaluation. Please take all prescribed medications as directed. Were given your 1st dose of Lasix in the department. Please take Lasix for the next 3 days. Your chest x-ray did not show pneumonia. Your chest CT did not show a blood clot. Your lower extremity ultrasounds did not show any blood clots. You tested negative for COVID, RSV, and flu today. Your urine does not appear to be infected. Your workup today was reassuring. It is important to follow-up with Cardiology, call on Thursday to make an appointment. If any new or worsening symptoms occur including but not limited to chest pain, shortness of breath, please return for re-evaluation. Prescriptions: New furosemide [Lasix] 20 mg tablet 20 mg PO DAILY Qty: 3 0RF No Action doxycycline hyclate 100 mg tablet 100 mg PO BID 10 Days Qty: 20 0RF loratadine-pseudoephedrine [Claritin-D 24 Hour] 10-240 mg tablet extended release 24 hr 1 tab PO DAILY Qty: 30 0RF doxycycline hyclate 100 mg capsule 100 mg PO BID 7 Days Qty: 14 0RF amoxicillin-pot clavulanate 875-125 mg tablet 1 tab PO BID 7 Days Qty: 14 0RF ibuprofen 600 mg tablet 600 mg PO Q6H PRN (Reason: pain) Qty: 20 0RF oxycodone 5 mg tablet 5 mg PO Q6H PRN (Reason: pain) Qty: 10 0RF Rx Instructions: Partial Fill upon patient request. Referrals: [facility] [place] [facility] [Provider Group] Interventions: ED Discharge Assessment Last Done: 10/24/23 16:57 Discharge Date/Time: 10/24/23 16:58
--- NOTE | 2023-10-24 12:08 | ECG_ITS ---
Test Reason : SOB Blood Pressure : / mmHG Vent. Rate : 074 BPM Atrial Rate : 074 BPM P-R Int : 186 ms QRS Dur : 092 ms QT Int : 420 ms P-R-T Axes : 041 -21 012 degrees QTc Int : 466 ms Normal sinus rhythm Normal ECG When compared with ECG of 31-JUL-2021 12:48, No significant change was found Referred By: Lauren Lee Electronically Signed By:Sagar Scott
[2023-10-24 12:09] LABS: Troponin-I High Sensitivity 3.4 ng/L (<3.5-35.0)
[2023-10-24 12:14] LABS: Albumin Level 3.7 g/dL (3.5-5.0)
[2023-10-24 12:32] VITALS: BP 125/70; PULSE 69; RESP 20; TEMP 36.7; O2SAT 93
[2023-10-24 13:30] LABS: Influenza A PCR NEGATIVE (Negative); Influenza B PCR NEGATIVE (Negative); Resp Syncy Virus RNA Qual PCR NEGATIVE (Negative); SARS COV2 PCR INHOUSE NEGATIVE (Negative)
[2023-10-24] MEDS: iohexoL 350 MG/ML 100 ML INFUS..BTL 65 ML IV (15:51)
[2023-10-24] MEDS: Furosemide 40 MG TABLET PO (16:50)
[2023-10-24 16:51] VITALS: BP 137/94; PULSE 62; RESP 20
== END 2023-10-24 16:58 | disposition home or self-care (01) ==
PROVIDERS: Physician Assistant Medical; Emergency Provider Emergency Medicine
DX: R60.0 Localized edema (principal); M79.662 Pain in left lower leg; M79.661 Pain in right lower leg; R06.02 Shortness of breath; E66.9 Obesity, unspecified; Z68.43 Body mass index [BMI] 50.0-59.9, adult; Z20.822 Contact with and (suspected) exposure to COVID-19; Z20.828 Contact with and (suspected) exposure to other viral communicable diseases; Z79.899 Other long term (current) drug therapy
CPT/HCPCS: 0241U; 36415; 71045; 71275; 80048; 81003; 82040; 83880; 84484; 85025; 93005; 93970; 99284; Q9967

== ENCOUNTER → 2023-10-24 12:08 | Outpatient (BNV) | payer OTHER, SELFPAY | PROVIDERS: Emergency Provider Emergency Medicine; Visit Provider Internal Medicine Cardiovascular Disease | DX: R06.02 Shortness of breath (principal) | CPT/HCPCS: 93010 ==

== ENCOUNTER 2025-02-10 11:59 | Emergency (ER) | payer OTHER, SELFPAY ==
[2025-02-10 12:25] VITALS: BP 126/82; PULSE 83; RESP 16; TEMP 37.2; O2SAT 94; BMI 50.9
--- NOTE | 2025-02-10 12:26 | ED_ITS ---
HPI - General Adult General Chief complaint: General Medical Stated complaint: Toe Pain Leg Muscle Pain Time Seen by Provider: 02/10/25 16:14 Source: patient Mode of arrival: ambulatory Limitations: no limitations History of Present Illness ED Provider: Chelsea Pereira PA-C HPI narrative: Patient is a 44 year old assigned male at with a history of opiate abuse (on Methadone) and crack cocaine abuse (sober), presenting to the emergency department today with left great toe nail pain, body aches, and intermittent numbness / tingling to the toes. Patient states that over the last few days he has had noticed that his left great toe nail seems to be curling inward. Patient states that he has also been having body aches and intermittent numbness and tingling to both sets of toes. Patient denies any dizziness, lightheadedness, abdominal pain, nausea, vomiting, fever, chills, blurry vision, double vision, loss of vision, chest pain, difficulty breathing, shortness of breath, back pain, night sweats, pain with urination, increased urinary frequency, increased urinary urgency, blood in his urine or stool, syncope or a near syncopal episode, recent trauma or falls, bowel incontinence, bladder incontinence, or any other complaints at this time. Onset (ago): day(s) Relieving factors: none Exacerbating factors: none Associated symptoms: denies other symptoms Treatments prior to arrival: none Related Data Previous Rx's ?Medication ?Instructions ?Recorded doxycycline hyclate 100 mg tablet 100 mg PO BID 10 days #20 tabs 04/10/22 loratadine-pseudoephedrine ER 10 1 tab PO DAILY #30 tabs 04/10/22 mg-240 mg tablet,extended [id number] (Claritin-D 24 Hour) amoxicillin 875 mg-potassium 1 tab PO BID 7 days #14 tabs 12/30/22 clavulanate 125 mg tablet doxycycline hyclate 100 mg capsule 100 mg PO BID 7 days #14 caps 12/30/22 ibuprofen 600 mg tablet 600 mg PO Q6H PRN pain #20 tabs 12/30/22 oxycodone 5 mg tablet 5 mg PO Q6H PRN pain #10 tabs 12/30/22 furosemide 20 mg tablet (Lasix) 20 mg PO DAILY #3 tabs 10/24/23 Allergies Allergy/AdvReac Type Severity Reaction Status Date / Time cefazolin [From ANCEF] Allergy Unknown UNKNOWN Verified 02/10/25 12:28 cephalexin [From KEFLEX] Allergy Unknown UNKNOWN Verified 02/10/25 12:28 Review of Systems 2 Constitutional: Constitutional: Reports no additional constitutional complaints, Reports body ache(s), Denies chills, Denies fever(s) and Denies night sweats Eyes: Eyes: Reports no additional eye complaints, Denies blurry vision, Denies change in vision, Denies diplopia, Denies eye discharge, Denies loss of vision and Denies eye pain ENT: Denies dizziness Cardiovascular: Cardiovascular: Reports no additional cardiovascular complaints, Denies chest pain, Denies lightheadedness, Denies Loss of Consciousness and Denies dyspnea Respiratory: Respiratory: Reports no additional respiratory complaints and Denies dyspnea Gastrointestinal: Gastrointestinal: Reports no additional gastrointestinal complaints, Denies abdominal pain, Denies melena, Denies hematochezia, Denies change in bowel habits and Denies change in stool character Genitourinary: Genitourinary: Reports no additional male genitourinary complaints, Denies hematuria, Denies oliguria, Denies difficulty urinating, Denies dysuria, Denies urinary frequency, Denies urinary hesitancy, Denies urinary incontinence and Denies urinary urgency Musculoskeletal: Musculoskeletal: Reports no additional musculoskeletal complaints Comments: left great toe pain intermittent numbness and tingling to both toes Neurologic: Denies dizziness and Denies loss of vision Psychiatric: Psychiatric: Reports no additional psychiatric complaints Endocrine: Endocrine: Reports no additional endocrine complaints Hematologic/Lymphatic: Hematologic/Lymphatic: Reports no additional hematologic/lymphatic complaints Allergic/Immunologic: Allergic/Immunologic: Reports no additional allergic/immunologic complaints [facility] Past Medical History Attestation statement: The following information was validated with the patient. Source: old records reviewed and nursing notes reviewed Social History Social History Advance Directives: No Advance Directives Information Provided: Yes Do you have a plan to hurt others: No Plan Physical Exam ED Vital Signs: Vital Signs - 24 hr 02/10/25 12:25 02/10/25 16:42 Temperature 98.9 F 98.9 F Pulse Rate 83 83 Respiratory Rate 16 16 Blood Pressure 126/82 126/82 Pulse Oximetry 94 94 Oxygen Delivery Method Room Air Room Air BMI result Body Mass Index 50.9 Const General: cooperative, no acute distress, alert and awake Nutritional Appearance: well nourished Orientation/consciousness: patient oriented x3 Limitations: no limitations HENMT Head: Yes normal to inspection and Yes atraumatic Ears: hearing grossly normal bilaterally and external ears normal General nose exam: Normal external nose present, no nasal discharge noted and no epistaxis Face and sinus: Yes normal facial exam, No abrasion and No laceration Mouth: Normal oral and palatal mucosa present, no drooling and no muffled voice Eyes General: appearance normal, both eyes and all related structures Periorbital: periorbital findings normal Eyelids: Yes eyelids normal Conjunctivae: conjunctivae normal Pupils: Equal, round and reactive pupils present EOM: EOMs intact bilaterally Neck Neck: Yes normal visual inspection, Yes full ROM and Yes no lymphadenopathy Chest Chest palpation & inspection: normal inspection of the chest Resp Effort & Inspection: normal respiratory effort and able to speak in complete sentences GI Inspection: Yes normal to inspection Neuro General: patient oriented x3, moves all extremities and CN's II-XI intact bilaterally Cranial nerves: Yes Equal, round and reactive pupils present Cognition (Neuro): normal cognition Extrem Other: very minimal erythema present to the lateral aspect of the left great toe nail - consistent with the beginning of an ingrown toe nail General: Yes full ROM and Yes capillary refill normal Psych Appearance: grossly normal Mental Status: mental status grossly normal Affect: normal affect Attitude: cooperative Thought process: Normal thought process present Thought content: Normal thought content present Insight: Good insight present (Psych) Course Course Course Narrative: RME performed by Chelsea Pereira PA-C. Patient is a 44 year old assigned male at presenting to the emergency department with multiple complaints. Patient states that his left great toe nail is curling into the edges of the toe skin, he is having numbness / tingling in his fingers and toes, and he feels as though his muscles hurt. Detailed physical exam and review of systems are deferred to the wheel worker. Labs ordered. Patient placed back in the waiting room pending room availability and results. Medical Decision Making Medical Decision Making MDM Narrative: Patient is a 44 year old assigned male at with a history of opiate abuse (on Methadone) and crack cocaine abuse (sober), presenting to the emergency department today with left great toe nail pain, body aches, and intermittent numbness / tingling to the toes. Patient's physical exam was as noted in the physical exam portion of this note and most consistent with the beginnings of an ingrown toe nail. Patient's blood work was unremarkable. I explained my physical exam findings as well as all test results to the patient. I answered all questions asked by the patient. I explained to the patient that if he would like to continue waiting - I could get him into a space outside of triage and address his ingrown left great toe nail more directly. Patient stated that he would prefer to be discharged and return at 0400 tomorrow so he would have a shorter wait time. I explained to the patient that it is entirely possible when he returns at that time it will be just as busy as it is now with a potentially longer wait. He stated he would still prefer to be discharged now and return later. I stressed the importance of the patient taking his medication as directed (either prescribed or as the over the counter packaging recommends). I stressed the importance of the patient following up with his primary care provider and a install technician. I stressed the importance of the patient returning to the emergency department immediately if his symptoms were to worsen or if he were to develop any dizziness, shortness of breath, difficulty breathing, chest pain, blurry vision, loss of vision, nausea, vomiting, abdominal pain, fever, chills, back pain, or any other complaints. Patient verbalized agreement and understanding with this treatment plan and discharge. Differential Diagnosis Differential Diagnoses: The differential diagnosis associated with the presentation includes Left great toe nail ingrown Body aches Intermittent numbness / tingling Admission/Observation Consideration of admission/observation: Escalation of care including admission/observation considered Patient would have been admitted to the hospital had his work up had any findings where hospital admission was appropriate and his clinical presentation warranted hospital admission. Lab Data [facility] Lab Attestation statement: I reviewed the patient's lab results. My interpretation of these results are in the [facility] Rationale portion of this note. 02/10/25 13:09 02/10/25 13:09 Labs: Lab Results 02/10/25 Range/Units 13:09 WBC 8.0 (4.8-10.8) X10*3/uL RBC 4.87 D (4.60-5.80) X10*6/uL Hgb 15.0 D (14.0-18.0) g/dl Hct 43.4 D (42.0-52.0) % MCV 89.1 (80.0-98.0) fL MCH 30.8 (27.0-33.0) pg MCHC 34.6 (31.0-36.0) g/dl RDW 13.2 (11.0-16.0) % Plt Count 223 (160-400) X10*3/uL MPV 10.2 (9.4-12.4) fL Immature Gran % (Auto) 0.4 (0.0-0.4) % Neut % (Auto) 68.4 (45-73) % Lymph % (Auto) 22.0 (20-40) % Gilmer % (Auto) 6.5 (2-11) % Eos % (Auto) 1.9 (0-4) % Baso % (Auto) 0.8 (0-2) % Lymph # (Auto) 1.8 (1.2-4.9) X10*3/uL Gilmer # (Auto) 0.5 (0.1-1.2) X10*3/uL Eos # (Auto) 0.2 (0.0-0.4) X10*3/uL Baso # (Auto) 0.1 (0.0-0.2) X10*3/uL Abs Immat Gran (auto) 0.03 (0.00-0.03) X10*3/uL Absolute Neuts (auto) 5.5 (2.0-8.3) x10*3/uL Absolute Nucleated RBC 0.000 (0.0-0.012) X10*3/uL Nucleated RBC % (auto) 0.0 (0.0-0.2) /100WBC ESR 10 (0-15) MM/HR Sodium 141 (135-145) mmol/L Potassium 4.8 (3.3-5.1) mmol/L Chloride 106 (96-108) mmol/L Carbon Dioxide 30 H (22-29) mmol/L Anion Gap 10 L (12-20) BUN 13 (9-16) mg/dL Creatinine 1.06 (0.5-1.4) mg/dL Estim Creat Clear Calc 145.6 Estimated GFR > 60 Random Glucose 114 (60-115) mg/dL Estimat Average Glucose 108 mg/dL Hemoglobin A1c % 5.4 (<6.0) % Calcium 9.4 (8.4-10.2) mg/dL Magnesium 2.1 (1.6-2.6) mg/dL Total Bilirubin 0.2 (0.0-1.0) mg/dL AST 24 (5-37) U/L ALT 33 (0-40) U/L Alkaline Phosphatase 86 (39-117) U/L C-Reactive Protein 1.06 H (< or = 0.50) mg/dL Total Protein 7.0 (6.5-8.0) g/dL Albumin 4.0 (3.5-5.0) g/dL Influenza Type A (PCR) NEGATIVE (Negative) Influenza Type B (PCR) NEGATIVE (Negative) RSV RNA Qual (PCR) NEGATIVE (Negative) SARS-CoV-2 RNA (RT-PCR) NEGATIVE (Negative) Discharge Plan Discharge Clinical Impression: Pain in toe, Muscle pain Patient Disposition: Home, Self-Care Instructions: Ingrown Nail (ED), Musculoskeletal Pain (ED) Additional Instructions: Follow up with your primary care provider and a install technician. Return to the emergency department immediately if your symptoms worsen or if you develop any numbness, tingling, dizziness, shortness of breath, difficulty breathing, chest pain, blurry vision, loss of vision, nausea, vomiting, abdominal pain, fever, chills, back pain, or any other complaints. Please see the information below about our Patient Portal. If you are not yet enrolled in the [facility] Patient Portal, you will receive an enrollment email invitation following your visit to any [facility] setting. You may also self-enroll in the Patient Portal by visiting our website: [email or web address] The following information is required to access the Patient Portal: - Your [facility] Medical Record Number - Your personal home email address (must match what is in your electronic medical record, Registration staff can assist with this) - Name - Date of Capabilities of the Patient Portal: - Message some providers - View upcoming appointments - Access your health summary, medical history, and visit history - View current conditions and allergies - View procedure and lab results - View your medications, including guidelines, side effects, and precautions - Complete pre-appointment questionnaires requested by your provider - Ready summary reports of your office visits and procedures To access the Patient Portal Mobile [employer], follow these directions: - Search [employer] in the [employer] Store or [employer] Store - Download the [employer] - Search for [facility] - Enter your login/password Prescriptions: No Action doxycycline hyclate 100 mg tablet 100 mg PO BID 10 Days Qty: 20 0RF loratadine-pseudoephedrine [Claritin-D 24 Hour] 10-240 mg tablet extended release 24 hr 1 tab PO DAILY Qty: 30 0RF doxycycline hyclate 100 mg capsule 100 mg PO BID 7 Days Qty: 14 0RF amoxicillin-pot clavulanate 875-125 mg tablet 1 tab PO BID 7 Days Qty: 14 0RF ibuprofen 600 mg tablet 600 mg PO Q6H PRN (Reason: pain) Qty: 20 0RF oxycodone 5 mg tablet 5 mg PO Q6H PRN (Reason: pain) Qty: 10 0RF Rx Instructions: Partial Fill upon patient request. furosemide [Lasix] 20 mg tablet 20 mg PO DAILY Qty: 3 0RF Referrals: [facility] Family Medicine [Provider Group] (Call to establish and follow up with a primary care provider. If you already have a primary care provider, please follow up with them.) [facility] Primary Care, Kathleen [Provider Group] (Call to establish and follow up with a primary care provider. If you already have a primary care provider, please follow up with them.) [facility] Primary Care,Mikala [Provider Group] (Call to establish and follow up with a primary care provider. If you already have a primary care provider, please follow up with them.) [facility] Primary CareAdarsh [Provider Group] (Call to establish and follow up with a primary care provider. If you already have a primary care provider, please follow up with them.) Silvestre Mcdaniel DPM [Physician] - (Call to establish and follow up with a install technician. ) Interventions: ED Discharge Assessment Last Done: 02/10/25 16:42 Discharge Date/Time: 02/10/25 16:42 Print Language: Vietnamese
[2025-02-10 13:14] LABS: MANUAL DIFF FLAG NO
[2025-02-10 13:15] LABS: Basophils Absolute Auto 0.1 X10*3/uL (0.0-0.2); Basophils Percent Auto 0.8 % (0-2); Eosinophils Absolute Auto 0.2 X10*3/uL (0.0-0.4); Eosinophils Percent Auto 1.9 % (0-4); Hematocrit 43.4 % (42.0-52.0); Imm Gran Abs Auto 0.03 X10*3/uL (0.00-0.03); Imm Gran Pct Auto 0.4 % (0.0-0.4); Lymphocytes Absolute Auto 1.8 X10*3/uL (1.2-4.9); Mean Corpuscular HGB Conc 34.6 g/dl (31.0-36.0); Mean Corpuscular Hemoglobin 30.8 pg (27.0-33.0); Mean Corpuscular Volume 89.1 fL (80.0-98.0); Mean Platelet Volume 10.2 fL (9.4-12.4); Monocytes Absolute Auto 0.5 X10*3/uL (0.1-1.2); Monocytes Percent Auto 6.5 % (2-11); Neutrophils Absolute Auto 5.5 x10*3/uL (2.0-8.3); Neutrophils Percent Auto 68.4 % (45-73); Platelet Count 223 X10*3/uL (160-400); Red Blood Count 4.87 X10*6/uL (4.60-5.80); Red Cell Distribution Width 13.2 % (11.0-16.0)
[2025-02-10 13:38] LABS: Alanine Aminotransferase 33 U/L (0-40); Alkaline Phosphatase 86 U/L (39-117); Anion Gap 10 (12-20); Aspartate Amino Transferase 24 U/L (5-37); Bilirubin Total 0.2 mg/dL (0.0-1.0); Blood Urea Nitrogen 13 mg/dL (9-16); C Reactive Protein 1.06 mg/dL (< or = 0.50); Calcium 9.4 mg/dL (8.4-10.2); Carbon Dioxide 30 mmol/L (22-29); Chloride 106 mmol/L (96-108); Creatinine Clr Calc Pharmacy 145.6; Estimated Glomerular Filt Rate > 60; Glucose Random 114 mg/dL (60-115); Magnesium 2.1 mg/dL (1.6-2.6); Potassium 4.8 mmol/L (3.3-5.1); Sodium 141 mmol/L (135-145)
[2025-02-10 13:56] LABS: Influenza A PCR NEGATIVE (Negative); Influenza B PCR NEGATIVE (Negative); Resp Syncy Virus RNA Qual PCR NEGATIVE (Negative); SARS COV2 PCR INHOUSE NEGATIVE (Negative)
[2025-02-10 13:59] LABS: Erythrocyte Sedimentation Rate 10 MM/HR (0-15)
[2025-02-10 14:22] LABS: Estimated Average Glucose 108 mg/dL; Hemoglobin A1C 138.2892 umol/L; Hemoglobin A1c % 5.4 % (<6.0); Total Hemoglobin (HGBA1C) 3930.7026 umol/L
--- OUTSIDE RECORDS SUMMARY | 2025-02-10 15:08 | XMS_ITS | Clinical Summary ---
Author Organization [facility] Address [address] [place] [address] Care Team Providers Care Elementary Instructional Coach Name Role Phone Unavailable Primary Care Provider Unavailabl e Surgical History Surgery Date Site/Laterality Comments OTHER SURGICAL HISTORY PROCEDURE: ---- OTHER ----; COMMENT: excision lymph node right clavicle, cat scratch fever MULTIPLE TOOTH EXTRACTIONS PROCEDURE: HISTORICAL DENTAL EXTRACTION Medical History Medical History Date Comments Opiate dependence (CMS/HCC) 08/27/2012 DX:O piate dependence ([facility]) Family History Medical History Relation Name Comments Other: emphysema Mother arthritis Relation Name Status Comments Mother Social History Tobacco Use Types Packs/Day Years Used Date Smoking Tobacco: Every Day Cigarettes Smokeless Tobacco: Never Alcohol Use Standard Drinks/Week Comments Not Asked 0 (1 standard drink = 0.6 oz pur e alcohol) Sex and Gender Information Value Date Recorded Sex Assigned at Not on file Legal Sex Male 10:55 AM EST Gender Identity Not on file Sexual Orientation Not on file Obstetrics History Plan of Treatment Health Maintenance Due Date Last Done Comments Hepatitis B Vaccines (1 of 3 - 19+ 3-dose series) 2000 Pneumococcal Vaccine: Pediat rics (0 to 5 Years) and At-Risk Patients (6 to 64 Years) (1 of 2 - PCV) 2000 DTaP,Tdap,and Td Vaccines (2 - Td or Tdap) 04/30/2022 04/30/2012 COVID-19 Vaccine ( - 2023-2 5 season) 2024 Influenza Vaccine (#1) 2024 Cholesterol Screening (Lipid Panel) 01/22/2025 Depression Screening 01/22/2025 HIV Screening 01/22/2025 Hepatitis C Screening 01/22/2025 Social Influencers of Health Screening 01/22/2025 HIB Vaccines Aged Out No longer eligi ble based on patient's age to complete this topic HPV Vaccines Aged Out No longer eligi ble based on patient's age to complete this topic Hepatitis A Vaccines Aged Out No long er eligible based on patient's age to complete this topic IPV Vaccines Aged Out No longer eligi ble based on patient's age to complete this topic MMR Vaccines Aged Out No longer eligi ble based on patient's age to complete this topic Meningococcal ACWY Vaccine Aged Out N o longer eligible based on patient's age to complete this topic Meningococcal B Vacine Aged Out No lo nger eligible based on patient's age to complete this topic RSV Immunization Patients Un perico 20 months Aged Out No longer eligible b ased on patient's age to complete this topic Varicella Vaccines Aged Out No longer eligible based on patient's age to complete this topic
--- OUTSIDE RECORDS SUMMARY | 2025-02-10 15:08 | XMS_ITS | Data Portability ---
Author Organization [facility] [address] Address [address] [place] [address] Assessment No assessment recorded. Plan of Treatment Reminders Order Date Submit Date Provider Last Modified By Organization Details Last Modified Time Details Appointments None recorded. Lab None recorded. Referral None recorded. Procedures None recorded. Surgeries None recorded. Imaging None recorded. Medication Orders amoxicillin 875 mg-potassiu m clavulanate 125 mg tablet 2022 023 [facility]/Pharmacy #[id number], [address] [place] [address], [id number], 3 17:15:24 naproxen 500 mg tablet 2022 023 [facility]/Pharmacy #[id number], [address] [place] [address], [id number], 3 17:15:23 Patient TargetsNo targets recorded. Patient Instructions Encounter Date Encounter Id Patient Instructions Last Modified By Organization Details Last Modified Time 10/15/2023 [id number] abscessed tooth: care instructions [email or web address] Not available 10/15/2023 17:16:27 Reason for Referral None Reported. Procedures Surgical History Date Name Laterality Status Provider Name and Address Organization Details Recorded Time 3 Virtual Visit completed Amrita Fox NP [address] [place], [address], [facility] 10/15/2023 17:20:19 3 Virtual Visit completed Amrita Fox NP [address] [place], [address], [place] - [facility] 10/15/2023 16:22:13 Imaging Results None recorded. Procedure Notes None recorded. Medical Equipment None Reported. Allergies Allergen ID Allergen Name Allergen Category Reaction Reaction Severity Criticality Documentation Date Start Date Code Code System Note Provider Name and Address Organization Details Recorded Time 736127 Keflex medicatio n hives severe high 10/15/202390864 7 RxNorm Amrita Fox, [employer] [address] [place], [address], [place] - [facility] 3 17:10:04 230088 cefazolin sodium medicatio n rash severe high 10/15/2023 1 RxNorm Amrita Fox, [employer] [address] , [place], [address], [employer] - [facility] 3 17:10:35 Medications Name Sig Start Date Stop Date Status Note LastModified by Organization Details LastModified Time amoxicillin 500 mg capsule TAKE 1 CAPSULE BY MOUTH THREE TIMES DAILY active Not Available Not Available No t Available nicotine 14 mg/24 hr daily transdermal patch active Not Available Not Available Not Available trazodone 50 mg tablet active Not Available Not Available Not Available nicotine (polacrilex) 2 mg gum active Not Available Not Available Not Available gabapentin 400 mg capsule TAKE 1 CAPSULE BY MOUTH THREE TIMES A DAY active Not Available Not Available No t Available sertraline 100 mg tablet active Not Available Not Available No t Available acetaminophen 300 mg-codeine 30 mg tablet TAKE 1 TABLET BY MOUTH EVERY 12 HOURS active Not Available Not Available No t Available acetaminophen 500 mg tablet active Not Available Not Availabl e Not Available amoxicillin 875 mg tablet active Not Available Not Available No t Available methocarbamol 750 mg tablet active Not Available Not Availabl e Not Available gabapentin 300 mg capsule active Not Available Not Available N ot Available hydroxyzine HCl 25 mg tablet active Not Available Not Available Not Available furosemide 20 mg tablet active Not Available Not Available No t Available ibuprofen 600 mg tablet TAKE 1 TABLET ORALLY EVERY 6 HOURS NEEDED FOR PAIN active Not Available Not Available No t Available sertraline 50 mg tablet active Not Available Not Available No t Available doxycycline hyclate 100 mg tablet TAKE 1 TABLET ORALLY 2 TIMES A DAY FOR 7 DAYS active Not Available Not Available No t Available naproxen 500 mg tablet TAKE 1 TABLET BY MOUTH TWICE A DAY NEEDED FOR 10 DAYS active Not Available Not Available No t Available amoxicillin 875 mg-potassium clavulanate 125 mg tablet TAKE 1 TABLET BY MOUTH EVERY 12 HOURS FOR 10 DAYS active Not Available Not Available No t Available oxycodone 5 mg tablet TAKE 1 TABLET ORALLY EVERY 6 HOURS NEEDED FOR PAIN active Not Available Not Available No t Available quetiapine 50 mg tablet TAKE 1 TABLET BY MOUTH AT BEDTIME NEEDED FOR SLEEP active Not Available Not Available No t Available Vitals None Recorded Social History None recorded. Functional Status None recorded. Mental Status None recorded. Family History Nothing Reported. Medical History No medical history recorded. Past Encounters Encounter ID Performer Location Encounter Start Date Encounter Closed Date Diagnosis/Indication Diagnosis SNOMED-CT Code Diagnosis ICD10 Code Diagnosis Note [id number] [facility] [address] [place] [address] 07/14/2019 08:21:36 07/14/2019 08:58:02 [id number] [facility] [address] [place] [address] 10/12/2020 15:27:07 10/12/2020 17:46:54 [id number] [address] [place] [address] 08/07/2020 15:01:36 08/07/2020 16:25:34 [id number] [address] [place] [address] 10/03/2020 08:10:56 10/03/2020 09:05:36 [id number] [address] [place] [address] 12/08/2019 08:55:08 12/08/2019 09:27:34 [id number] [facility] [address] [place] [address] 04/23/2021 15:59:29 04/23/2021 17:40:34 [id number] [facility] [address] [place] [address] 06/11/2020 10:06:35 06/11/2020 10:33:36 [id number] [address] [facility] [place] [address] 05/08/2020 11:24:23 05/08/2020 11:39:27 [id number] [address] [facility] [place] [address] 06/14/2020 11:05:07 06/14/2020 12:25:42 [id number] [address] [facility] [place] [address] 03/28/2017 09:42:37 03/28/2017 10:09:30 [id number] [address] [facility] [place] [address] 10/24/2020 08:03:47 10/24/2020 08:44:39 [id number] [address] [facility] [address] [facility] [place] [address] 04/18/2020 09:49:26 04/18/2020 10:22:04 [id number] [address] [facility] [place] [address] 12/23/2018 12:55:44 12/23/2018 13:21:58 [id number] [place] [address] [place] [address] 10/15/2023 15:57:15 10/15/2023 16:31:27 Did not attend [id number] Z53.20 called patient twicefirst time waited 10+ min, second time 4 + min [id number] [place] [address] [place] [address] 10/15/2023 16:45:30 10/15/2023 17:26:39 Dental abscess [id number] K04.7 has taken amox before per his account , pharmacist informed Health Concerns Section Related Observation LastModified by Organization Detai ls LastModified Time None Recorded Concern Status LastModified by Organization Details LastModified Time None Recorded Advance Directives Directive None Recorded Payers Encounter Date Sequence Insurance Name Policy Number Policy Hernández Covered Member ID Hernández Member ID Guarantor Name 04/23/[address] [facility] (MEDICAID REPLACEMENT - HMO) [address] [place] [id number] [place] 10/15/[address] [facility] (MEDICAID REPLACEMENT - HMO) MANU[address] [place] [id number] [place] 10/15/[address] [facility] (MEDICAID REPLACEMENT - HMO) MANU[address] [place] [id number] [place] Notes Date Note Type Note Provider Name and Address Organization Details Recorded Time 10/15/2023 text/html Dental ProblemRe ported bypatient.source of patient informationsource of patient information patient Onset2 days Locationupper; canine; first premolar Symptomspain;gingival swelling Treatment:OTC medications; past dental surgery Patient reports that he has had multiple dental procedures inthe past few months. reports pain and swelling of gingiva and face on the right upper side not affecting breathing at this time . tylenol not helping with pain. was told that he needed a crown in the tooth , will see dentist soon. requesting treatment for tooth infection, has been treated with amox before per his account Amrita Fox NP [address] [place], [address], [place] - [facility] 10/15/2023 17:22:19
[2025-02-10 16:42] VITALS: BP 126/82; PULSE 83; RESP 16; TEMP 37.2; O2SAT 94
== END 2025-02-10 16:42 | disposition home or self-care (01) ==
PROVIDERS: Physician Assistant Medical; Emergency Provider Emergency Medicine
DX: M79.675 Pain in left toe(s) (principal); M79.10 Myalgia, unspecified site; Z03.818 Encounter for observation for suspected exposure to other biological agents ruled out; Z79.899 Other long term (current) drug therapy
CPT/HCPCS: 0241U; 80053; 83036; 83735; 85025; 85652; 86140; 99282; 99283

== ENCOUNTER 2025-02-11 04:50 | Emergency (ER) | payer OTHER, SELFPAY ==
[2025-02-11 04:59] VITALS: BP 126/53; PULSE 55; RESP 18; TEMP 36.6; O2SAT 97; BMI 50.9
--- OUTSIDE RECORDS SUMMARY | 2025-02-11 05:53 | XMS_ITS | Clinical Summary ---
Author Organization [facility] Address [address] [place] [address] Care Team Providers Care Instrument Fitter Name Role Phone Unavailable Primary Care Provider Unavailabl e Surgical History Surgery Date Site/Laterality Comments OTHER SURGICAL HISTORY PROCEDURE: ---- OTHER ----; COMMENT: excision lymph node right clavicle, cat scratch fever MULTIPLE TOOTH EXTRACTIONS PROCEDURE: HISTORICAL DENTAL EXTRACTION Medical History Medical History Date Comments Opiate dependence (CMS/HCC) 08/27/2012 DX:O piate dependence ([facility]) Family History Medical History Relation Name Comments [...]
[2025-02-11] MEDS: Ibuprofen 600 MG TABLET PO (05:58)
--- NOTE | 2025-02-11 06:25 | ED.GENADULT ---
HPI - General Adult General Chief complaint: General Medical Stated complaint: gen med Time Seen by Provider: 02/11/25 05:07 Source: patient Mode of arrival: ambulatory Limitations: no limitations History of Present Illness ED Provider: Dr. Brittany Worthington HPI narrative: Patient comes to the emergency room complaining of an embedded toenail on the great toe medial aspect of the left foot. Patient states that he can not even put socks on because it hurts so much. Also, patient complaining of athlete's foot bilaterally Related Data Previous Rx's ?Medication ?Instructions ?Recorded doxycycline hyclate 100 mg tablet 100 mg PO BID 10 days #20 tabs 04/10/22 loratadine-pseudoephedrine ER 10 1 tab PO DAILY #30 tabs 04/10/22 mg-240 mg tablet,extended [id number] (Claritin-D 24 Hour) amoxicillin 875 mg-potassium 1 tab PO BID 7 days #14 tabs 12/30/22 clavulanate 125 mg tablet doxycycline hyclate 100 mg capsule 100 mg PO BID 7 days #14 caps 12/30/22 ibuprofen 600 mg tablet 600 mg PO Q6H PRN pain #20 tabs 12/30/22 oxycodone 5 mg tablet 5 mg PO Q6H PRN pain #10 tabs 12/30/22 furosemide 20 mg tablet (Lasix) 20 mg PO DAILY #3 tabs 10/24/23 terbinafine HCl 1 % topical cream 1 appl topical BID #30 grams 02/11/25 (Athlete's Foot (terbinafine)) Allergies Allergy/AdvReac Type Severity Reaction Status Date / Time cefazolin [From ANCEF] Allergy Unknown UNKNOWN Verified 02/11/25 05:01 cephalexin [From KEFLEX] Allergy Unknown UNKNOWN Verified 02/11/25 05:01 Review of Systems Review of Systems: Constitutional : No Weight loss, No Fever, No Chills, No Night Sweats, No Fatigue, No Malaise ENT/Mouth : No Hearing loss, No Ear Pain, No Nasal Congestion, No Sinus Pain, No Hoarseness, No sore throat, No Rhinorrhea, No Swallowing Difficulty Eyes: No Eye Pain, No Swelling, No Redness, No Foreign Body, No Discharge, No Vision Changes Cardiovascular : No Chest Pain, No SOB, No Dyspnea on Exertion, No Orthopnea, No Edema, No Palpitations Respiratory : No Cough, No Sputum, No Wheezing, No Smoke Exposure, No Dyspnea Gastrointestinal : No Nausea, No Vomiting, No Diarrhea, No Constipation, No abdominal Pain, No Hematochezia, No Melena Genitourinary : no irregular bleeding, No Dysuria, No Urinary Frequency, No Hematuria, No Urinary Incontinence, No Urgency, No Flank Pain, No Urinary Flow Changes, No Hesitancy Musculoskeletal : No joint pain, complaining of nonspecific lower extremity myalgias Myalgias, No Joint Swelling Skin : Complaining of tinea pedis bilaterally and an embedded toenail in the great toe of the left foot Neuro : No Weakness, No Numbness, No Paresthesias, No Loss of Consciousness, No Dizziness, No Headache Psych : No Anxiety/Panic, No Depression, No SI/HI/AH/VH, No Social Issues, Heme/Lymph: No Bruising, No Bleeding,No Lymphadenopathy Endocrine : No Polyuria, No Polydipsia, No Temperature Intolerance PMFSH Social History Social History Advance Directives: No Advance Directives Information Provided: Yes Do you have a plan to hurt others: No Plan Physical Exam ED Vital Signs: Vital Signs - 24 hr 02/11/25 04:59 Temperature 97.9 F Pulse Rate 55 Respiratory Rate 18 Blood Pressure 126/53 L Pulse Oximetry 97 Oxygen Delivery Method Room Air BMI result Body Mass Index 50.9 Const Other: Appearance: Alert. Oriented X3. No acute distress. Eyes: Pupils equal, round and reactive to light. ENT: Pharynx normal. Neck: Normal inspection. Neck supple. No lymph nodes noted. No crepitus CVS: Normal heart rate and rhythm. Pulses normal. Normal S1 and S2 Respiratory: No respiratory distress. Breath sounds normal. No Wheezing. No rales Abdomen: Soft and nontender. No rigidity. No distention. Skin: Skin warm and dry. Normal skin color. Normal skin turgor. Patient has an embedded toenail on the medial aspect of the great toe. Also patient has tinea pedis bilaterally between the toes Extremities: No lower extremity edema. No Lacerations. No Rash Neuro: Oriented X 3. No motor deficit. No sensory deficit. Moving all extremities. No slurred speech. CN 2 through 12 grossly intact Psych: calm, cooperative, normal affect Medications Administered Discontinued Medications Generic Name Dose Route Start Last Admin Trade Name Freq PRN Reason Stop Dose Admin Ibuprofen 600 mg 02/11/25 05:54 02/11/25 05:58 Ibuprofen 600 Mg Tablet PO 02/11/25 05:55 600 mg ONCE ONE Administration Medical Decision Making Medical Decision Making [facility] Narrative: Although there is no pus on the toe, patient complaining of severe tenderness with very minimal touch where the nail is imbedded. After running through the options with the patient, patient decided to get a lidocaine injection. 2% lidocaine without epinephrine was injected, approximately 1 mL. I was able to remove the corner that was embedded. Patient tolerated well the procedure. Discharge Plan Discharge Clinical Impression: Embedded toenail, Athlete's foot Patient Disposition: Home, Self-Care Instructions: Ingrown Nail (ED) Additional Instructions: Please follow-up with your primary care physician tomorrow. If you have any worsening or new symptoms, please return to the emergency room or call 911 Prescriptions: New terbinafine HCl [Athlete's Foot (terbinafine)] 1 % cream 1 appl topical BID Qty: 30 1RF No Action doxycycline hyclate 100 mg tablet 100 mg PO BID 10 Days Qty: 20 0RF loratadine-pseudoephedrine [Claritin-D 24 Hour] 10-240 mg tablet extended release 24 hr 1 tab PO DAILY Qty: 30 0RF doxycycline hyclate 100 mg capsule 100 mg PO BID 7 Days Qty: 14 0RF amoxicillin-pot clavulanate 875-125 mg tablet 1 tab PO BID 7 Days Qty: 14 0RF ibuprofen 600 mg tablet 600 mg PO Q6H PRN (Reason: pain) Qty: 20 0RF oxycodone 5 mg tablet 5 mg PO Q6H PRN (Reason: pain) Qty: 10 0RF Rx Instructions: Partial Fill upon patient request. furosemide [Lasix] 20 mg tablet 20 mg PO DAILY Qty: 3 0RF Print Language: Setswana
[2025-02-11 06:43] VITALS: BP 142/82; PULSE 81; RESP 19; TEMP 36.7; O2SAT 96
== END 2025-02-11 06:59 | disposition home or self-care (01) ==
PROVIDERS: Emergency Provider Emergency Medicine
DX: L60.0 Ingrowing nail (principal); B35.3 Tinea pedis
CPT/HCPCS: 11730; 99284; J2003

== ENCOUNTER 2025-03-29 04:36 | Emergency (ER) | payer OTHER, SELFPAY ==
--- NOTE | ~2025-03-29 | XR_ITS ---
CLINICAL HISTORY: cp anxiety 1 view chest x-ray. Comparison: None Findings: The lungs are adequately expanded. No focal consolidation. No effusion or pneumothorax. Cardiac and mediastinal contours are within normal limits. No acute osseous abnormality Impression: No focal consolidation or overt edema. This document has been electronically signed by: Del Moran MD on 03/29/2025 05:17:01
[2025-03-29 04:42] VITALS: BP 122/76; BP 132/90; PULSE 69; PULSE 72; RESP 22; TEMP 36.9; O2SAT 100; O2SAT 98; BMI 50.2
--- NOTE | 2025-03-29 05:01 | ECG_ITS ---
Test Reason : CP/ANXIETY Blood Pressure : */* mmHG Vent. Rate : 69 BPM Atrial Rate : 69 BPM P-R Int : 184 ms QRS Dur : 92 ms QT Int : 420 ms P-R-T Axes : 38 -16 5 degrees QTcB Int : 450 ms Normal sinus rhythm Normal ECG When compared with ECG of 24-Oct-2023 12:27, No significant change was found Referred By: Generic ED Physician Electronically Signed By: Sagar Scott
[2025-03-29 05:27] LABS: MANUAL DIFF FLAG NO
[2025-03-29 05:29] LABS: Basophils Absolute Auto 0.1 X10*3/uL (0.0-0.2); Basophils Percent Auto 0.6 % (0-2); Eosinophils Absolute Auto 0.1 X10*3/uL (0.0-0.4); Eosinophils Percent Auto 1.3 % (0-4); Hematocrit 42.3 % (42.0-52.0); Hemoglobin 14.7 g/dl (14.0-18.0); Imm Gran Abs Auto 0.03 X10*3/uL (0.00-0.03); Imm Gran Pct Auto 0.3 % (0.0-0.4); Lymphocytes Absolute Auto 2.1 X10*3/uL (1.2-4.9); Lymphocytes Percent Auto 22.5 % (20-40); Mean Corpuscular HGB Conc 34.8 g/dl (31.0-36.0); Mean Corpuscular Hemoglobin 30.2 pg (27.0-33.0); Mean Corpuscular Volume 86.9 fL (80.0-98.0); Mean Platelet Volume 11.1 fL (9.4-12.4); Monocytes Absolute Auto 0.6 X10*3/uL (0.1-1.2); Monocytes Percent Auto 6.7 % (2-11); Neutrophils Absolute Auto 6.4 x10*3/uL (2.0-8.3); Neutrophils Percent Auto 68.6 % (45-73); Platelet Count 225 X10*3/uL (160-400); Red Blood Count 4.87 X10*6/uL (4.60-5.80); Red Cell Distribution Width 13.2 % (11.0-16.0); White Blood Count 9.3 X10*3/uL (4.8-10.8)
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
[2025-03-29 05:44] LABS: Alanine Aminotransferase 48 U/L (0-40); Albumin Level 4.1 g/dL (3.5-5.0); Alkaline Phosphatase 69 U/L (39-117); Anion Gap 13 (12-20); Aspartate Amino Transferase 25 U/L (5-37); Bilirubin Total 0.4 mg/dL (0.0-1.0); Blood Urea Nitrogen 14 mg/dL (9-16); Calcium 9.2 mg/dL (8.4-10.2); Carbon Dioxide 28 mmol/L (22-29); Chloride 106 mmol/L (96-108); Creatinine Clr Calc Pharmacy 147.2; Estimated Glomerular Filt Rate > 60; Glucose Random 117 mg/dL (60-115); Potassium 3.9 mmol/L (3.3-5.1); Sodium 143 mmol/L (135-145)
[2025-03-29 05:47] VITALS: BMI 41.1
[2025-03-29 05:48] LABS: Troponin-I High Sensitivity < 2.7 ng/L (<3.5-35.0)
[2025-03-29 06:05] LABS: Amphetamine Screen Urine Not Detected (Not Detect); Barbiturates, Urine Not Detected (Not Detect); Benzodiazepines Screen Urine Not Detected (Not Detect); Buprenorphine Scr Not Detected (Not Detect); Cannabinoid Screen Urine POSITIVE (Not Detect); Cocaine Screen Urine Not Detected (Not Detect); Fentanyl, urine Not Detected (Not Detect); Methadone Screen, Urine Positive (Not Detect); Opiate Screen Urine Not Detected (Not Detect); Oxycodone Screen Urine Not Detected (Not Detect); Phencyclidine Screen Urine Not Detected (Not Detect)
[2025-03-29 06:20] VITALS: BP 104/67; PULSE 74; RESP 14; TEMP 36.6; O2SAT 95
--- NOTE | 2025-03-29 06:24 | PC.NURSE ---
this rn spoke with ed provider md capps. per pt expressed concern for using drugs if he were to go home as well as a fear about doing something stupid to her when speaking about pt this rn made head charger aware pt changed into ligature free hospital attire and safety check performed by box feeder and security team
[2025-03-29] MEDS: LORazepam 1 MG TABLET PO (06:28)
[2025-03-29 07:17] LABS: Troponin-I High Sensitivity < 2.7 ng/L (<3.5-35.0)
[2025-03-29] MEDS: Gabapentin 600 MG TABLET PO (09:55)
[2025-03-29] MEDS: buPROPion HCl XL 300 MG TAB.ER.24H PO (09:55)
--- NOTE | 2025-03-29 09:58 | PC.NURSE ---
Pt calm/cooperative; reports he feels much better after having slept; reports inadequate sleep for a week; requesting his daily Gabapentin and Wellbutrin; both meds verified with [facility]athleen; meds ordered and gv; verbal report gv to BETSY Jimenez/ pod; pt walked over to pod by process controls technician
[2025-03-29 09:59] LABS: Appearance Urine Clear; Color Urine Yellow; Glucose Urine UA Negative (Negative); Leukocyte Esterase Urine Negative (Negative); Nitrite Urine Negative (Negative); PH 5.5 (5.0-9.0); Specific Gravity - Urine 1.025 (1.005-1.025); Urine Blood Negative (Negative); Urine Ketones Trace mg/dL (Negative); Urine Protein Negative (Neg-Trace)
--- NOTE | 2025-03-29 10:26 | PC.NURSE ---
Pt asking to leave- not yet evaluated by care team. care team notified as well as Dr Langston. Pt calm and cooperative in NAD
--- NOTE | 2025-03-29 10:39 | PC.NURSE ---
Pt reporting feeling uncomfortabe in BH pod due to comments made by another patient, pt requesting to leave, pt reports I wasn't supposed to be brought back here . Pt also reporting that it is his first day off methadone and he is not doing well. MD gillespie
--- NOTE | 2025-03-29 10:44 | PC.NURSE ---
pt meeting with Bette, CARE team clinician
[2025-03-29 11:01] VITALS: BP 138/84; PULSE 61; RESP 16; TEMP 36.5; O2SAT 98
--- NOTE | 2025-03-29 11:01 | MHC.CARE ---
Per provider, Pt did not require a crisis assessment and a discharge was put in for Pt. T/W checked in with Pt to see if there was anything else he needed. T/W provided support and an OP therapy referral will be placed through [facility] for Pt per his request.
== END 2025-03-29 11:05 | disposition home or self-care (01) ==
PROVIDERS: Emergency Medicine; Emergency Provider Emergency Medicine
DX: F41.9 Anxiety disorder, unspecified (principal); F41.0 Panic disorder [episodic paroxysmal anxiety]; F43.20 Adjustment disorder, unspecified; R07.89 Other chest pain; Z51.81 Encounter for therapeutic drug level monitoring; Z79.899 Other long term (current) drug therapy
CPT/HCPCS: 36415; 71045; 80053; 80307; 81003; 84484; 85025; 93005; 99284

== ENCOUNTER → 2025-03-29 05:01 | Outpatient (BNV) | payer OTHER, SELFPAY | PROVIDERS: Emergency Provider Emergency Medicine; Visit Provider Internal Medicine Cardiovascular Disease | DX: F41.9 Anxiety disorder, unspecified (principal); R07.9 Chest pain, unspecified | CPT/HCPCS: 93010 ==

== ENCOUNTER → 2025-03-29 05:02 | Outpatient (BNV) | payer OTHER, SELFPAY | PROVIDERS: Emergency Provider Emergency Medicine; Visit Provider Radiology Vascular & Interventional Radiology | DX: R07.9 Chest pain, unspecified (principal) | CPT/HCPCS: 71045 ==